=== PATIENT | female | born 1945 | race Caucasian/White ===

== ENCOUNTER → 2017-10-20 13:56 | Outpatient (CLI) | payer OTHER, SELFPAY | PROVIDERS: Family Provider Family Medicine; PCP Family Medicine; Visit Provider Physician Assistant | DX: N39.0 Urinary tract infection, site not specified (principal); R31.9 Hematuria, unspecified | CPT/HCPCS: 87086 ==

== ENCOUNTER 2018-09-11 06:10 | Emergency (ER) | payer OTHER, SELFPAY ==
[2018-09-11 06:17] VITALS: BP 159/94; PULSE 82; RESP 20; TEMP 36.5; O2SAT 98; BMI 28.8
--- NOTE | 2018-09-11 06:26 | DI.RAD.S_ITS ---
PROCEDURE: XR WRIST LT MIN 3V INDICATIONS: fall with pain, swelling, history of fractures TECHNIQUE: 3 views of the wrist were acquired. COMPARISON: [facility], CT, UPPER EXTREMITY WO CONTRAST, 08/17/2017, 13:09. [facility], CR, WRIST MINIMUM 3 VIEWS LEFT, 06/09/2017, 11:33. FINDINGS: Bones: There is a mildly displaced distal radius fracture, with intra-articular involvement. This fracture is new compared to the prior study. Findings of a remote fracture of the distal radius can be seen, prior plate and screw fixation. There is an unfused ulnar styloid fracture seen. Degenerative changes are seen, which are most prominent involving radial aspect of the carpus. The scapholunate interval is again noted to be widened. Soft tissues: Mild soft tissue swelling is seen. IMPRESSION: There is an acute, mildly displaced, intra-articular fracture of the distal radius. Remote fractures with postoperative change of the distal radius can be seen. Remote, unfused ulnar styloid fracture. Likely scapholunate ligament tear. Note: No significant discrepancy from the preliminary report. Dictated by: Adam Gonzalez M.D. on 09/11/2018 at 7:01 Approved by: Adam Gonzalez M.D. on 09/11/2018 at 7:04
--- NOTE | 2018-09-11 06:49 | ED.UPPEXIN ---
HPI - Extremity Injury (Upper) General Chief Complaint: Extremity Injury, Upper Stated Complaint: thinks left wrist is broken Time Seen by Provider: 09/11/18 06:15 Source: patient Mode of arrival: ambulatory Limitations: no limitations History of Present Illness HPI narrative: 73F former smoker presents with L wrist pain after fall with history of prior fracture requiring surgery. She was walking on her deck and stubbed her toe and fell on an outstretched wrist. She denies head, neck, or back pain. Her pain is worse with motion. She denies numbness, tingling or other. MD complaint: injury to: left Onset (ago): minute(s) Other injuries: none Handedness: right Place: home Severity: moderate Relieving factors: immobilization and rest Exacerbating factors: movement of extremity Context: fall Associated symptoms: denies other symptoms Related Data Allergies Allergy/AdvReac Type Severity Reaction Status Date / Time No Known Drug Allergies Allergy Verified 10/20/17 13:18 Review of Systems Constitutional Denies chills, Denies fever(s), Denies lethargy and Denies weakness Eyes Denies change in vision, Denies eye discharge, Denies irritation and Denies loss of vision ENT Ears, Nose, Mouth, and Throat: Denies change in voice, Denies neck pain and Denies sore throat Cardiovascular Denies chest pain, Denies irregular heart rhythm, Denies lightheadedness, Denies palpitations, Denies dyspnea, Denies dyspnea on exertion and Denies orthopnea Respiratory Denies cough, Denies dyspnea, Denies dyspnea on exertion and Denies wheezing Gastrointestinal Gastrointestinal: Denies abdominal pain, Denies change in bowel habits, Denies diarrhea, Denies nausea and Denies vomiting Genitourinary Denies hematuria, Denies flank pain, Denies urinary incontinence and Denies urinary urgency Musculoskeletal Reports joint swelling, Reports limited range of motion and Denies neck pain Integumentary/Breasts Denies pruritus, Denies erythema, Denies rash and Denies wounds Neurologic Denies confusion, Denies loss of vision and Denies weakness Psychiatric Denies anxiety, Denies confusion, Denies depression, Denies homicidal ideation and Denies suicidal ideation Endocrine Denies palpitations Hematologic/Lymphatic Denies easy bruising Allergic/Immunologic Denies wheezing [facility] Social History Smoking Status: Former smoker alcohol intake: never Social History (Reviewed 09/11/18 @ 07:04 by CLAUDIA Armenta Smoking Status: Former smoker alcohol intake: never Exam Narrative Exam Narrative: GENERAL: 73F appears stated age, clearly in pain, splinting her L wrist HEAD: Atraumatic. Normocephalic. No temporal or scalp tenderness. EYES: Pupils equal round and reactive. Extraocular motions intact. No scleral icterus. No injection or drainage. ENT: Nose without bleeding, purulent drainage or septal hematoma. Throat without erythema, tonsillar hypertrophy or exudate. Uvula midline. Airway patent. NECK: Trachea midline. No JVD or lymphadenopathy. Supple, nontender, no meningeal signs. CARDIOVASCULAR: Regular rate and rhythm without murmurs, gallops, or rubs. RESPIRATORY: Clear to auscultation. Breath sounds equal bilaterally. No wheezes, rales, or rhonchi. GASTROINTESTINAL: Abdomen soft, non-tender, nondistended. No hepato-splenomegaly, or palpable masses. No guarding. EXTREMITIES: Decreased ROM secondary to pain. Closed, isolated and NV in tact. BACK: Nontender without deformity or crepitance. No flank tenderness. NEURO: AOx3. SKIN: No rash or erythema. Initial Vital Signs Initial Vital Signs: Vital Signs Temperature 97.7 F 09/11/18 06:17 Pulse Rate 82 09/11/18 06:17 Respiratory Rate 20 09/11/18 06:17 Blood Pressure 159/94 H 09/11/18 06:17 Pulse Oximetry 98 09/11/18 06:17 Procedures Orthopedic Splinting/Casting Injury #1: Side: left Upper Extremity Injury Location: wrist Upper Extremity Immobilizer: sling/shoulder immobilizer and sugar tong splint Post splinting neuro exam: intact Post splinting vascular exam: intact Placed by: Nursing Course Orders Ordered: ED Orders 09/11/18 06:26 XR wrist LT min 3V Stat Discontinued Medications Hydrocodone Bitart/Acetaminophen (Vicodin Prepack) 1 bottle MISC SEEINSTR ONE Stop: 09/11/18 06:56 Consultations Consultation #1: consult with Dr. Lagunas, he is in agreement with plan to splint and follow up Vital Signs - 8 hr 09/11/18 06:17 Temperature 97.7 F Pulse Rate 82 Respiratory Rate 20 Blood Pressure 159/94 H Pulse Oximetry 98 MDM - Extremity Injury (Upper) Imaging Data Wrist Xray: My impression: Minimally displaced distal radius fracture Discharge Plan Departure Patient Disposition: Home Clinical Impression: Fracture of left distal radius Qualifiers: Encounter type: initial encounter Fracture type: closed Fracture morphology: unspecified fracture morphology Qualified Code(s): S52.502A - Unspecified fracture of the lower end of left radius, initial encounter for closed fracture Instructions: DI for Distal Radius Fracture Activity Restrictions/Additional Instructions: *You have been diagnosed with [ minimally displaced Left distal radius fracture] *What to do: *Take medications as directed *Follow up with your orthopedist in 2-3 days, call for an appointment. Let them know you were seen in the Emergency Department and that we ask that you be seen in follow up *Return to ER if you should have any new, worsening or concerning symptoms, such as [ worsening pain, numbness, tingling, or other bothersome symptoms] Referrals: Santiago Lagunas MD [Physician] -
[2018-09-11] MEDS: HYDROCODONE/ACET 5/325 PREPACK 1 BOTTLE MISC (07:04)
== END 2018-09-11 07:35 | disposition home or self-care (01) ==
PROVIDERS: Emergency Provider Emergency Medicine
DX: S52.502A Unspecified fracture of the lower end of left radius, initial encounter for closed fracture (principal); W19.XXXA Unspecified fall, initial encounter
CPT/HCPCS: 29125; 73110; 99283

== ENCOUNTER → 2020-01-16 11:37 | Outpatient (CLI) | payer OTHER, SELFPAY ==
[2020-01-18 10:02] LABS: COVID19 Sendout Not Detected (Not Detect)
== END ==
PROVIDERS: Visit Provider Physician Assistant
DX: Z11.59 Encounter for screening for other viral diseases (principal); R52 Pain, unspecified; R53.83 Other fatigue
CPT/HCPCS: 87635

== ENCOUNTER → 2020-01-16 12:12 | Outpatient (CLI) | payer OTHER, SELFPAY ==
[2020-01-16 12:25] LABS: Bacteria Urine None Seen; WBC Urine None Seen (0-5/HPF)
[2020-01-16 12:46] LABS: Appearance Urine UA CLEAR; Bilirubin Urine UA NEGATIVE (NEGATIVE); Color Urine UA YELLOW; Glucose Urine UA NEGATIVE (Negative); Ketones Urine UA NEGATIVE (NEGATIVE); Leukocyte Esterase Urine UA NEGATIVE (NEGATIVE); Nitrite Urine UA NEGATIVE (Negative); Occult Blood Urine UA 2+ (Negative); Protein Urine UA NEGATIVE (Negative); Specific Gravity Urine UA 1.025 (1.000-1.035); Urobilinogen Urine UA 0.2 E.U./dL (0.2)
[2020-01-16 12:53] LABS: Add Manual Diff / Slide Review NO; Basophils Absolute Auto 0 /uL (0-100); Basophils Percent Auto 0.5 % (0-2); Eosinophils Absolute Auto 100 /uL (0-450); Eosinophils Percent Auto 1.5 % (2-4); Hematocrit 45.4 % (36-46); Hemoglobin 15.4 g/dL (12.0-16.0); Lymphocytes Absolute Auto 2400 /uL (1100-4500); Lymphocytes Percent Auto 26.6 % (25-40); Mean Corpuscular HGB Conc 33.8 % (30-36); Mean Corpuscular Hemoglobin 30.3 PG (26-34); Mean Corpuscular Volume 89.6 fL (80-100); Monocytes Absolute Auto 900 /uL (0-900); Monocytes Percent Auto 9.7 % (3-14); Neutrophils Absolute Auto 5500 /uL (1500-7000); Neutrophils Percent Auto 61.7 % (50-75); Platelet Count 250 X10^3/uL (150-400); Red Blood Cell Count 5.07 X10^6/uL (4.0-5.2); Red Cell Distribution Width 13.2 % (11.6-14.8); White Blood Cell Count 8.9 X10^3/uL (4.5-11.0)
[2020-01-16 12:55] LABS: Culture Indicated Urine Cult Not Indicated; RBC Urine 5-10/HPF (0-5/HPF); Squamous Epithelial Cell Urine 5-10 /HPF (0-5/HPF)
[2020-01-16 13:38] LABS: Alanine Aminotransferase 27 IU/L (<35); Albumin 4.3 g/dL (3.5-5.0); Albumin Globulin Ratio 1.4 (1.0-2.8); Alkaline Phosphatase 77 U/L (38-126); Amylase 104 U/L (30-110); Aspartate Aminotransferase 27 IU/L (14-36); BUN Creatinine Ratio 23.5 (6-22); Bilirubin Total 0.4 mg/dL (0.2-1.3); Blood Urea Nitrogen 16 mg/dL (7-17); Calcium 9.5 mg/dL (8.4-10.2); Carbon Dioxide 31 mmol/L (22-32); Chloride 104 mmol/L (98-107); Estimated Glomerular Filt Rate > 60.0 mL/min (>60); Globulin 3.1 g/dL (1.7-4.1); Glucose 93 mg/dL (80-110); HEMOLYSIS < 15 (0-50); Lipase 95 U/L (23-300); Potassium 4.3 mmol/L (3.4-5.1); Sodium 140 mmol/L (137-145); Total Protein 7.4 g/dL (6.3-8.2)
[2020-01-16 14:08] LABS: TSH w/ Reflex to FT4 1.47 uIU/mL (0.47-4.68)
== END ==
PROVIDERS: PCP Family Medicine; Referring Provider Physician Assistant; Visit Provider Physician Assistant
DX: Z03.818 Encounter for observation for suspected exposure to other biological agents ruled out (principal); R53.83 Other fatigue; R52 Pain, unspecified
CPT/HCPCS: 36415; 80053; 81001; 82150; 83690; 84443; 85025; 87635

== ENCOUNTER 2020-06-05 10:28 | Emergency (ER) | payer OTHER, SELFPAY ==
[2020-06-05] VITALS (7 sets, daily range): BP systolic 138–178; BP diastolic 68–83; PULSE 71–85; RESP 16; TEMP 36.7; O2SAT 96–97
--- NOTE | 2020-06-05 11:01 | DI.RAD.S_ITS ---
PROCEDURE: XR SHOULDER LT MIN 2V INDICATIONS: pain x month, no trauma TECHNIQUE: 3 views of the shoulder were acquired. COMPARISON: [facility], CR, SHOULDER MINIMUM 2 VIEW LEFT, 02/02/2015, 14:47. [facility], CR, XR SHOULDER MIN 2VW LT, 01/24/2016, 15:48. FINDINGS: Bones: No fractures or dislocations. No suspicious bony lesions. There is moderate glenohumeral joint and acromioclavicular joint degeneration. Visualized ribs appear intact. Soft tissues: Calcification over the humeral head, suspicious for rotator cuff calcific tendinitis. IMPRESSION: 1. Moderate degenerative joint disease. 2. Suspect rotator cuff calcific tendinitis. Dictated by: Odessa Harris M.D. on 06/05/2020 at 11:47 Approved by: Odessa Harris M.D. on 06/05/2020 at 11:51
--- NOTE | 2020-06-05 11:01 | DI.RAD.S_ITS ---
PROCEDURE: XR CHEST 2V INDICATIONS: pain x month, no trauma TECHNIQUE: 2 views of the chest were acquired. COMPARISON: [facility], , CHEST 1 VIEW, 07/08/2017, 11:46. FINDINGS: Surgical changes and devices: None. Lungs and pleura: Mild chronic interstitial prominence. Lungs are clear. No pleural effusions or pneumothorax. Mediastinum: Mediastinal contours are normal. Heart size is normal. Bones and chest wall: No suspicious bony abnormalities. Soft tissues appear unremarkable. IMPRESSION: No acute cardiopulmonary disease. Dictated by: Odessa Harris M.D. on 06/05/2020 at 11:25 Approved by: Odessa Harris M.D. on 06/05/2020 at 11:36
[2020-06-05 11:24] LABS: Prothrombin Time 11.8 SECONDS (10.1-12.7)
[2020-06-05 11:26] LABS: HEMOLYSIS < 15 (0-50)
[2020-06-05 11:27] LABS: PTT Partial Thromboplastin Tim 37 SECONDS (26.4-36.2)
[2020-06-05 11:33] LABS: Alanine Aminotransferase 24 IU/L (<35); Albumin 4.3 g/dL (3.5-5.0); Albumin Globulin Ratio 1.4 (1.0-2.8); Alkaline Phosphatase 91 U/L (38-126); Aspartate Aminotransferase 25 IU/L (14-36); BUN Creatinine Ratio 24.1 (6-22); Bilirubin Total 0.5 mg/dL (0.2-1.3); Blood Urea Nitrogen 14 mg/dL (7-17); Calcium 9.3 mg/dL (8.4-10.2); Carbon Dioxide 30 mmol/L (22-32); Chloride 104 mmol/L (98-107); Creatine Kinase 48 U/L (30-135); Estimated Glomerular Filt Rate > 60.0 mL/min (>60); Globulin 3.1 g/dL (1.7-4.1); Glucose 128 mg/dL (80-110); Lipase 58 U/L (23-300); Potassium 3.9 mmol/L (3.4-5.1); Sodium 138 mmol/L (137-145); Total Protein 7.4 g/dL (6.3-8.2)
[2020-06-05 11:44] LABS: Add Manual Diff / Slide Review NO; Basophils Absolute Auto 0 /uL (0-100); Basophils Percent Auto 0.6 % (0-2); Eosinophils Absolute Auto 100 /uL (0-450); Eosinophils Percent Auto 1.4 % (2-4); Hematocrit 46.1 % (36-46); Hemoglobin 15.2 g/dL (12.0-16.0); Lymphocytes Absolute Auto 2300 /uL (1100-4500); Lymphocytes Percent Auto 32.7 % (25-40); Mean Corpuscular HGB Conc 33.1 % (30-36); Mean Corpuscular Hemoglobin 29.3 PG (26-34); Mean Corpuscular Volume 88.7 fL (80-100); Monocytes Absolute Auto 600 /uL (0-900); Monocytes Percent Auto 8.9 % (3-14); Neutrophils Absolute Auto 4000 /uL (1500-7000); Neutrophils Percent Auto 56.4 % (50-75); Platelet Count 260 X10^3/uL (150-400); Red Blood Cell Count 5.19 X10^6/uL (4.0-5.2); Red Cell Distribution Width 13.7 % (11.6-14.8); White Blood Cell Count 7.1 X10^3/uL (4.5-11.0)
[2020-06-05 11:47] LABS: NT-proBNP (BNP-Adult 18+) 62 pg/mL (<125); Troponin I < 0.012 ng/mL (0.01-0.034)
--- NOTE | 2020-06-05 11:53 | DI.CT.S_ITS ---
PROCEDURE: CT HEAD/BRAIN WO CON INDICATIONS: dizziness TECHNIQUE: Noncontrast 4.5 mm thick angled axial sections acquired from the foramen magnum to the vertex, with coronal and sagittal reformats. For radiation dose reduction, the following was used: automated exposure control, adjustment of mA and/or kV according to patient size. COMPARISON: None. FINDINGS: Image quality: Diagnostic CSF spaces: Basal cisterns are patent. No extra-axial fluid collections. The ventricles are symmetric in size and shape. Brain: No intracranial bleeds or masses. There is cerebral volume loss for age, with resultant ventricular and sulcal prominence. There are periventricular and deep white matter chronic small vessel ischemic changes. There is intracranial internal carotid artery atherosclerosis. Skull and face: Calvarium and visualized facial bones appear intact, without suspicious lesions. Sinuses: Visualized sinuses and mastoids are clear. A IMPRESSION: Unremarkable intracranial study for age. Stable from prior. Dictated by: Adam Gonzalez M.D. on 06/05/2020 at 11:19 Approved by: Adam Gonzalez M.D. on 06/05/2020 at 11:20
[2020-06-05 12:09] LABS: Bacteria Urine Moderate (10-30); Culture Indicated Urine Cult Not Indicated; Mucus Urine 1+ (Negative); RBC Urine 5-10/HPF (0-5/HPF); Squamous Epithelial Cell Urine 1-5 /HPF (0-5/HPF); WBC Urine 1-5/HPF (0-5/HPF)
[2020-06-05 12:46] LABS: TSH w/ Reflex to FT4 1.44 uIU/mL (0.47-4.68)
[2020-06-05] MEDS: KETOROLAC 60 MG/2 ML VIAL 15 MG IV (14:48)
[2020-06-05 15:06] LABS: Troponin I < 0.012 ng/mL (0.01-0.034)
--- NOTE | 2020-06-05 19:42 | ED.EXTPRO ---
HPI - Extremity Problem <SANDY uLi - Last Filed: 06/05/20 20:06> General Chief complaint: Dizziness Stated complaint: high blood pressure/left arm/should pain w/ moveme Time Seen by Provider: 06/05/20 11:32 Source: patient Mode of arrival: Ambulatory Limitations: no limitations History of Present Illness HPI Narrative: This is a 74 year female, former smoker, who has past medical history significant for arthritis, fibromyalgia, COPD, hyperlipidemia, hypertension presents to ED with chief complain of multiple chief complaints. Patient states noticed intermittently elevated blood pressure at home in SBP upto mid 140's. Patient reports left upper arm pain from shoulder to mid upper arm which worsens with movement in associations of stop taking Cymbalta. Patient initially prescribed with low dose of Cymbalta about 3 months ago and which was increased in dose to twice slowly for joint pain management. When Cymbalta was increased in dosed up to 60 mg, patient had negative thoughts, insomnia, racing heart beats and she stopped abruptly about 3 weeks ago. Patient also reports low back pain and wonders if she has kidney problems. She is known to have microscopic hematuria in the past. Patient also states she had left arm pain after the flu immunization awhile ago then developed bilateral neck pain. Patient also says reports she has intermittent right groin pain feels worse when she is trying to sleep at night when lying on affected site. Patient also reports some dizziness, palpitation and nausea last 2-3 days. Patient denies cough, fever, chills, vomiting, abdominal pain. Denies other urinary symptoms. She denies dyspnea more than her usual COPD symptoms. Related Data Previous Rx's Medication Instructions Recorded lidocaine 1 patch TOPICAL DAILY PRN #30 ea 06/05/20 amlodipine 2.5 mg-benazepril 10 mg 1 cap PO DAILY #30 cap 06/06/20 capsule Allergies Allergy/AdvReac Type Severity Reaction Status Date / Time No Known Drug Allergies Allergy Verified 06/06/20 09:17 Review of Systems <SANDY Lui - Last Filed: 06/05/20 20:06> Review of Systems Narrative: General: Denies fever, chills, fatigue, malaise, sweats. HEENT: Denies sinus pain, ear pain, sore throat, difficulty swallowing,(+) dizziness. Respiratory: Denies dyspnea, cough, wheezing, hemoptysis, sputum. Cardiovascular: See HPI Gastrointestinal: Denies (+) nausea, vomiting, abdominal pain, diarrhea, constipation, melena. : Denies dysuria, frequency, incontinence, hematuria, urinary retention. Musculoskeletal: See HPI Skin: Denies rash, skin lesions, or other. Neurologic: Denies weakness, headache, numbness, change in speech, confusion, seizures, incoordination. Psychiatric: No concerning psychosocial issues. 12-point review of systems is negative except for those stated above. Patient History <SANDY Lui - Last Filed: 06/05/20 20:06> Medical History Acute exacerbation of chronic obstructive pulmonary disease (COPD) (~2018) Chicken pox COPD (chronic obstructive pulmonary disease) Dry eyes (~2018) Dyslipidemia Fatigue Fibromyalgia (~2014) Hearing loss History of urinary incontinence (~2018) Measles Microscopic hematuria Osteoarthritis Osteoporosis (~2013) Vision disorder Surgical History Anesthesia H/O wrist surgery History of section History of removal of cyst History of tonsillectomy Family History Father Lung disease Mother Diabetes mellitus History of heart disease Hypertension Lung disease Social History Smoking Status: Former smoker alcohol intake: never Smoking Status: Former smoker alcohol intake frequency: holidays/special occasions only Substance Use Type: does not use Exam <SANDY Lui - Last Filed: 06/05/20 20:06> Narrative Exam Narrative: GEN: Alert, oriented x 3, well appearing and nourished, and in no acute distress. Head: Normal cephalic, atraumatic. No scalp or temporal tenderness, palpable mass or rash. EYES: Pupils are equal, round, and reactive to light and accommodation. Extraocular muscles are intact bilaterally. There is no subconjunctival hemorrhage, exudate and sclera non-icteric. ENT: Hearing grossly intact. Mucous membrane moist, no mucosal lesion. Throat without erythema, tonsillar hypertrophy or exudate. Uvula in midline, airway patent. Neck: Trachea in midline. No JVD, non-tender without lymphadenopathy. No masses or thyroid megaly. Supple, non-tender and no meningeal signs. CARDIAC: Normal regular rate and rhythm without murmurs, gallops, or rubs. No chest wall tenderness. No peripheral edema, cyanosis or pallor. Capillary refill is less than 2 seconds. RESPIRATORY: Lungs are clear to auscultate bilaterally. No cough, wheezes, rales, or rhonchi. No stridor, respiratory distress, increase work of breathing, or accessary muscle used. ABD: Abdomen soft, nontender and non-distended. No guarding or rebound tenderness to palpate. Bowel sounds are normal in all 4 quadrants. There is no palpable masses or organomegaly. SKIN: Warm, dry, normal color for patient. No erythema, lesions or rash over visible areas. BACK: Nontender to palpate in low back without deformity or crepitance. No flank tenderness. NEUROLOGICAL: Alert and oriented to place, time and person. Sensation and motor function intact bilaterally. No facial droops, dysphasia. PSYCHIATRIC: Good judgement and reason, without hallucinations, abnormal affect or abnormal behaviors during the examination. Patient is not suicidal. Initial Vital Signs Initial Vital Signs: Vital Signs Temperature 98.1 F 06/05/20 10:55 Pulse Rate 85 06/05/20 10:55 Respiratory Rate 16 06/05/20 10:55 Blood Pressure 178/83 H 06/05/20 10:55 Pulse Oximetry 96 06/05/20 10:55 Extrem Left upper extremity: normal to inspection, normal capillary refill, shoulder/upper arm Details: inspection abnormal and normal ROM; no swelling, no deformity and no unsual warmth, wrist Details: normal to inspection, normal ROM, normal vascular exam and radial pulse present and hand Details: neuromotor exam normal and neurosensory exam normal; no edema and joint enlargement noted <Berna Chisholm, - Last Filed: 06/06/20 10:49> Initial Vital Signs Initial Vital Signs: Vital Signs Temperature 98.1 F 06/05/20 10:55 Pulse Rate 85 06/05/20 10:55 Respiratory Rate 16 06/05/20 10:55 Blood Pressure 178/83 H 06/05/20 10:55 Pulse Oximetry 96 06/05/20 10:55 Scores <Alexander BurgerKyaraLESLIE shearerP - Last Filed: 06/05/20 20:06> GCS Elizabeth coma scale eye opening: Spontaneous Elizabeth coma scale verbal response: Orientated Elizabeth coma scale motor response: Obey commands Elizabeth coma scale total score: 15 HEART Score Heart Score history: Slightly Suspicious Heart Score EKG: Non-Specific repolarization disturbance Heart Score Age: > or = 65 years old Heart Score risk factors: No known risk factors Heart Score troponin: < or = to normal limit Heart Score Total: 3 Course <Alexander BurgerKyaraLESLIE shearerP - Last Filed: 06/05/20 20:06> Orders Ordered: Discontinued Medications Ketorolac Tromethamine (Ketorolac 60 Mg/2 Ml Vial) 15 mg IV NOW ONE Stop: 06/05/20 14:39 Last Admin: 06/05/20 14:48 Dose: 15 mg Documented by: JOSE Vital Signs Vital signs: Vital Signs - 8 hr 06/05/20 13:38 06/05/20 13:40 06/05/20 14:00 Pulse Rate 75 71 77 Blood Pressure 138/73 138/73 149/68 H Pulse Oximetry 97 97 97 06/05/20 14:30 06/05/20 15:10 06/05/20 15:11 Pulse Rate 72 77 Blood Pressure 148/76 H Pulse Oximetry 97 96 96 <Berna Chisholm DO - Last Filed: 06/06/20 10:49> Orders Ordered: Discontinued Medications Ketorolac Tromethamine (Ketorolac 60 Mg/2 Ml Vial) 15 mg IV NOW ONE Stop: 06/05/20 14:39 Last Admin: 06/05/20 14:48 Dose: 15 mg Documented by: ALEXIMEN Vital Signs Vital signs: Vital Signs - 8 hr 06/05/20 13:38 06/05/20 13:40 06/05/20 14:00 Pulse Rate 75 71 77 Blood Pressure 138/73 138/73 149/68 H Pulse Oximetry 97 97 97 06/05/20 14:30 06/05/20 15:10 06/05/20 15:11 Pulse Rate 72 77 Blood Pressure 148/76 H Pulse Oximetry 97 96 96 MDM - Extremity (Nontraumatic) <Alexander BurgerLESLIE HaileP - Last Filed: 06/05/20 20:06> Differential Diagnosis Differential diagnosis: Likely other (atypical chest pain, ACS, shoulder strain, osteoarthritis, fibromyalgia) Medical Records Attestation: I reviewed the patient's medical records. Lab Data Attestation: I reviewed the patient's lab results. Result diagrams: 06/05/20 11:07 06/05/20 11:07 Labs: Lab Results 06/05/20 06/05/20 06/05/20 Range/Units 11:07 11:07 11:07 WBC 7.1 (4.5-11.0) X10^3/uL RBC 5.19 (4.0-5.2) X10^6/uL Hgb 15.2 (12.0-16.0) g/dL Hct 46.1 H (36-46) % MCV 88.7 (80-100) fL MCH 29.3 (26-34) PG MCHC 33.1 (30-36) % RDW 13.7 (11.6-14.8) % Plt Count 260 (150-400) X10^3/uL Neut % (Auto) 56.4 (50-75) % Lymph % (Auto) 32.7 (25-40) % [place] % (Auto) 8.9 (3-14) % Eos % (Auto) 1.4 L (2-4) % Baso % (Auto) 0.6 (0-2) % Neut # (Auto) 4000 (9295-0788) /uL Lymph # (Auto) 2300 (9795-7840) /uL [place] # (Auto) 600 (0-900) /uL Eos # (Auto) 100 (0-450) /uL Baso # (Auto) 0 (0-100) /uL PT 11.8 (10.1-12.7) SECONDS INR 1.0 (0.9-1.3) APTT 37 H (26.4-36.2) SECONDS Sodium 138 (137-145) mmol/L Potassium 3.9 (3.4-5.1) mmol/L Chloride 104 (98-107) mmol/L Carbon Dioxide 30 (22-32) mmol/L BUN 14 (7-17) mg/dL Creatinine 0.58 (0.52-1.04) mg/dL Estimated GFR > 60.0 (>60) mL/min BUN/Creatinine Ratio 24.1 H (6-22) Glucose 128 H (80-110) mg/dL Calcium 9.3 (8.4-10.2) mg/dL Magnesium 2.0 (1.6-2.3) mg/dL Total Bilirubin 0.5 (0.2-1.3) mg/dL AST 25 (14-36) IU/L ALT 24 (<35) IU/L Alkaline Phosphatase 91 (38-126) U/L Total Creatine Kinase 48 (30-135) U/L CK-MB (CK-2) TNP CK-MB (CK-2) Rel Index TNP Troponin I < 0.012 (0.01-0.034) ng/mL NT-Pro-B Natriuret Pep 62 (<125) pg/mL Total Protein 7.4 (6.3-8.2) g/dL Albumin 4.3 (3.5-5.0) g/dL Globulin 3.1 (1.7-4.1) g/dL Albumin/Globulin Ratio 1.4 (1.0-2.8) Lipase 58 (23-300) U/L TSH (0.47-4.68) uIU/mL Urine RBC (0-5/HPF) Urine WBC (0-5/HPF) Ur Squamous Epith Cells (0-5/HPF) Urine Bacteria (None) Urine Mucus (Negative) Ur Culture Indicated? 06/05/20 06/05/20 06/05/20 Range/Units 11:07 11:30 14:36 WBC (4.5-11.0) X10^3/uL RBC (4.0-5.2) X10^6/uL Hgb (12.0-16.0) g/dL Hct (36-46) % MCV (80-100) fL MCH (26-34) PG MCHC (30-36) % RDW (11.6-14.8) % Plt Count (150-400) X10^3/uL Neut % (Auto) (50-75) % Lymph % (Auto) (25-40) % [place] % (Auto) (3-14) % Eos % (Auto) (2-4) % Baso % (Auto) (0-2) % Neut # (Auto) (3270-5648) /uL Lymph # (Auto) (7474-9243) /uL [place] # (Auto) (0-900) /uL Eos # (Auto) (0-450) /uL Baso # (Auto) (0-100) /uL PT (10.1-12.7) SECONDS INR (0.9-1.3) APTT (26.4-36.2) SECONDS Sodium (137-145) mmol/L Potassium (3.4-5.1) mmol/L Chloride (98-107) mmol/L Carbon Dioxide (22-32) mmol/L BUN (7-17) mg/dL Creatinine (0.52-1.04) mg/dL Estimated GFR (>60) mL/min BUN/Creatinine Ratio (6-22) Glucose (80-110) mg/dL Calcium (8.4-10.2) mg/dL Magnesium (1.6-2.3) mg/dL Total Bilirubin (0.2-1.3) mg/dL AST (14-36) IU/L ALT (<35) IU/L Alkaline Phosphatase (38-126) U/L Total Creatine Kinase (30-135) U/L CK-MB (CK-2) CK-MB (CK-2) Rel Index Troponin I < 0.012 (0.01-0.034) ng/mL NT-Pro-B Natriuret Pep (<125) pg/mL Total Protein (6.3-8.2) g/dL Albumin (3.5-5.0) g/dL Globulin (1.7-4.1) g/dL Albumin/Globulin Ratio (1.0-2.8) Lipase (23-300) U/L TSH 1.44 (0.47-4.68) uIU/mL Urine RBC 5-10/hpf H (0-5/HPF) Urine WBC 1-5/hpf (0-5/HPF) Ur Squamous Epith Cells 1-5 /hpf (0-5/HPF) Urine Bacteria Moderate (10-30) H (None) Urine Mucus 1+ H (Negative) Ur Culture Indicated? Cult not indicated Urine Dip Bedside Urine Glucose Negative Bedside Urine Bilirubin - Negative Bedside Urine Ketone - Negative Urine Specific [place] 1.030 Bedside Urine Occult Blood +/- Bedside Urine pH 6.0 Bedside Urine Protein - Negative Bedside Urine Urobilinogen - Negative Bedside Urine Nitrite - Negative Bedside Urine Leukocytes - Negative Esterase Imaging Data Chest x-ray: Radiologist's Impression: [address] [id number] ReportSigned Patient: Sapphire Castaneda AMR#: [id number]: 8Acct:[id number]/Sex: 74 / FDate of Service: 06/05/20Loc: EDAccession Number: [id number] Procedure: XR chest 2V Ordering Provider: Berna Chisholm D.O. PROCEDURE: XR CHEST 2V INDICATIONS: pain x month, no trauma TECHNIQUE: 2 views of the chest were acquired. COMPARISON: [facility], , CHEST 1 VIEW, 07/08/2017, 11:46. FINDINGS: Surgical changes and devices: None. Lungs and pleura: Mild chronic interstitial prominence. Lungs are clear. No pleural effusions or pneumothorax. Mediastinum: Mediastinal contours are normal. Heart size is normal. Bones and chest wall: No suspicious bony abnormalities. Soft tissues appear unremarkable. IMPRESSION: No acute cardiopulmonary disease. Dictated by: Odessa Harris M.D. on 06/05/2020 at 11:25 Approved by: Odessa Harris M.D. on 06/05/2020 at 11:36 XR-Shoulder LT: Radiologist's Impression: [address] [id number] ReportSigned Patient: Sapphire Castaneda AMR#: [id number]: 8Acct:[id number]/Sex: 74 / FDate of Service: 06/05/20Loc: EDAccession Number: [id number] Procedure: XR shoulder LT min 2V Ordering Provider: Berna Chisholm D.O. PROCEDURE: XR SHOULDER LT MIN 2V INDICATIONS: pain x month, no trauma TECHNIQUE: 3 views of the shoulder were acquired. COMPARISON: [facility], , SHOULDER MINIMUM 2 VIEW LEFT, 02/02/2015, 14:47. [facility], XR SHOULDER MIN 2VW LT, 01/24/2016, 15:48. FINDINGS: Bones: No fractures or dislocations. No suspicious bony lesions. There is moderate glenohumeral joint and acromioclavicular joint degeneration. Visualized ribs appear intact. Soft tissues: Calcification over the humeral head, suspicious for rotator cuff calcific tendinitis. IMPRESSION: 1. Moderate degenerative joint disease. 2. Suspect rotator cuff calcific tendinitis. Dictated by: Odessa Harris M.D. on 06/05/2020 at 11:47 Approved by: Odessa Harris M.D. on 06/05/2020 at 11:51 CT scan - head: Radiologist's Impression: [address] [id number] Scan ReportSigned Patient: Sapphire Castaneda AMR#: [id number]: 8Acct:[id number]/Sex: 74 / FDate of Service: 06/05/20Loc: EDAccession Number: [id number] Procedure: CT head/brain wo con Ordering Provider: Berna Chisholm D.O. PROCEDURE: CT HEAD/BRAIN WO CON INDICATIONS: dizziness TECHNIQUE: Noncontrast 4.5 mm thick angled axial sections acquired from the foramen magnum to the vertex, with coronal and sagittal reformats. For radiation dose reduction, the following was used: automated exposure control, adjustment of mA and/or kV according to patient size. COMPARISON: None. FINDINGS: Image quality: Diagnostic CSF spaces: Basal cisterns are patent. No extra-axial fluid collections. The ventricles are symmetric in size and shape. Brain: No intracranial bleeds or masses. There is cerebral volume loss for age, with resultant ventricular and sulcal prominence. There are periventricular and deep white matter chronic small vessel ischemic changes. There is intracranial internal carotid artery atherosclerosis. Skull and face: Calvarium and visualized facial bones appear intact, without suspicious lesions. Sinuses: Visualized sinuses and mastoids are clear. A IMPRESSION: Unremarkable intracranial study for age. Stable from prior. Dictated by: Adam Gonzalez M.D. on 06/05/2020 at 11:19 Approved by: Adam Gonzalez M.D. on 06/05/2020 at 11:20 ECG Data Attestation EKG: I personally reviewed and interpreted this ECG as follows: Prior ECG tracings: available for review Interpretation: Normal sinus rhythm rate at 76. Normal axis. CA interval 168, QRS duration 84, QT/QTc 398/450 Nonspecific T-wave abnormality w/o significant changes from previous ECG tracings MDM Narrative Medical decision making narrative: This is a 74 year female who presents to ED with multiple chief complaints including left arm pain, low back pain, right groin pain, dizziness, nausea, palpitations last 2-3 days. Today patient received extensive workup for her multiple chief complaints. Patient has intact sensation and distal pulses intact. Patient has full range of motion on left arm. Patient is afebrile without significantly elevated BP. EKG shows sinus rhythm rate at [address] changes. Two sets of cardiac enzymes were negative. Chest x-ray without Acute findings. H&H is stable with 15.2/46.1. Unremarkable coag. Normal kidney function test. Normal liver function test With lipase. Otherwise unremarkable chemistry test except mildly elevated serum glucose of 128 with elevated BUN creatinine ratio above 24.1. Urine test does show urine RBC of 5-10/HPF, moderate bacteria but no significant urine WBC and she has no urinary symptoms. Head CT without acute findings. Shoulder x-ray shows moderate degenerative joint disease and suspect rotator cough calcific tendinitis. Patient treated with IV toward our 50 mg without marginal improvement. Patient provided with lidocaine patch. Advised to use [id number] Tylenol and or Motrin as needed for discomfort and possible physical therapy for conservative treatment options. Patient advised to follow-up with primary care physician and pains persist or worsen then to follow-up with orthopedist. Patient advised to monitor blood pressure at home around same time couple of times a day for next a week or 2 and to tract this. Patient advised to bring this information to primary care physician's appointment. Strict return precautions discussed with patient and she verbalized understanding and agreement with the treatment plan. <Berna Chisholm, DO - Last Filed: 06/06/20 10:49> Lab Data Labs: Lab Results 06/05/20 06/05/20 06/05/20 Range/Units 11:07 11:07 11:07 WBC 7.1 (4.5-11.0) X10^3/uL RBC 5.19 (4.0-5.2) X10^6/uL Hgb 15.2 (12.0-16.0) g/dL Hct 46.1 H (36-46) % MCV 88.7 (80-100) fL MCH 29.3 (26-34) PG MCHC 33.1 (30-36) % RDW 13.7 (11.6-14.8) % Plt Count 260 (150-400) X10^3/uL Neut % (Auto) 56.4 (50-75) % Lymph % (Auto) 32.7 (25-40) % [place] % (Auto) 8.9 (3-14) % Eos % (Auto) 1.4 L (2-4) % Baso % (Auto) 0.6 (0-2) % Neut # (Auto) 4000 (0447-0253) /uL Lymph # (Auto) 2300 (4907-2242) /uL [place] # (Auto) 600 (0-900) /uL Eos # (Auto) 100 (0-450) /uL Baso # (Auto) 0 (0-100) /uL PT 11.8 (10.1-12.7) SECONDS INR 1.0 (0.9-1.3) APTT 37 H (26.4-36.2) SECONDS Sodium 138 (137-145) mmol/L Potassium 3.9 (3.4-5.1) mmol/L Chloride 104 (98-107) mmol/L Carbon Dioxide 30 (22-32) mmol/L BUN 14 (7-17) mg/dL Creatinine 0.58 (0.52-1.04) mg/dL Estimated GFR > 60.0 (>60) mL/min BUN/Creatinine Ratio 24.1 H (6-22) Glucose 128 H (80-110) mg/dL Calcium 9.3 (8.4-10.2) mg/dL Magnesium 2.0 (1.6-2.3) mg/dL Total Bilirubin 0.5 (0.2-1.3) mg/dL AST 25 (14-36) IU/L ALT 24 (<35) IU/L Alkaline Phosphatase 91 (38-126) U/L Total Creatine Kinase 48 (30-135) U/L CK-MB (CK-2) TNP CK-MB (CK-2) Rel Index TNP Troponin I < 0.012 (0.01-0.034) ng/mL NT-Pro-B Natriuret Pep 62 (<125) pg/mL Total Protein 7.4 (6.3-8.2) g/dL Albumin 4.3 (3.5-5.0) g/dL Globulin 3.1 (1.7-4.1) g/dL Albumin/Globulin Ratio 1.4 (1.0-2.8) Lipase 58 (23-300) U/L TSH (0.47-4.68) uIU/mL Urine RBC (0-5/HPF) Urine WBC (0-5/HPF) Ur Squamous Epith Cells (0-5/HPF) Urine Bacteria (None) Urine Mucus (Negative) Ur Culture Indicated? 06/05/20 06/05/20 06/05/20 Range/Units 11:07 11:30 14:36 WBC (4.5-11.0) X10^3/uL RBC (4.0-5.2) X10^6/uL Hgb (12.0-16.0) g/dL Hct (36-46) % MCV (80-100) fL MCH (26-34) PG MCHC (30-36) % RDW (11.6-14.8) % Plt Count (150-400) X10^3/uL Neut % (Auto) (50-75) % Lymph % (Auto) (25-40) % [place] % (Auto) (3-14) % Eos % (Auto) (2-4) % Baso % (Auto) (0-2) % Neut # (Auto) (1030-0007) /uL Lymph # (Auto) (2870-3797) /uL [place] # (Auto) (0-900) /uL Eos # (Auto) (0-450) /uL Baso # (Auto) (0-100) /uL PT (10.1-12.7) SECONDS INR (0.9-1.3) APTT (26.4-36.2) SECONDS Sodium (137-145) mmol/L Potassium (3.4-5.1) mmol/L Chloride (98-107) mmol/L Carbon Dioxide (22-32) mmol/L BUN (7-17) mg/dL Creatinine (0.52-1.04) mg/dL Estimated GFR (>60) mL/min BUN/Creatinine Ratio (6-22) Glucose (80-110) mg/dL Calcium (8.4-10.2) mg/dL Magnesium (1.6-2.3) mg/dL Total Bilirubin (0.2-1.3) mg/dL AST (14-36) IU/L ALT (<35) IU/L Alkaline Phosphatase (38-126) U/L Total Creatine Kinase (30-135) U/L CK-MB (CK-2) CK-MB (CK-2) Rel Index Troponin I < 0.012 (0.01-0.034) ng/mL NT-Pro-B Natriuret Pep (<125) pg/mL Total Protein (6.3-8.2) g/dL Albumin (3.5-5.0) g/dL Globulin (1.7-4.1) g/dL Albumin/Globulin Ratio (1.0-2.8) Lipase (23-300) U/L TSH 1.44 (0.47-4.68) uIU/mL Urine RBC 5-10/hpf H (0-5/HPF) Urine WBC 1-5/hpf (0-5/HPF) Ur Squamous Epith Cells 1-5 /hpf (0-5/HPF) Urine Bacteria Moderate (10-30) H (None) Urine Mucus 1+ H (Negative) Ur Culture Indicated? Cult not indicated Urine Dip Bedside Urine Glucose Negative Bedside Urine Bilirubin - Negative Bedside Urine Ketone - Negative Urine Specific [place] 1.030 Bedside Urine Occult Blood +/- Bedside Urine pH 6.0 Bedside Urine Protein - Negative Bedside Urine Urobilinogen - Negative Bedside Urine Nitrite - Negative Bedside Urine Leukocytes - Negative Esterase Discharge Plan Departure Patient Disposition: Home Clinical Impression: Calcific shoulder tendinitis Qualifiers: Laterality: left Qualified Code(s): M75.32 - Calcific tendinitis of left shoulder Low back pain Qualifiers: Chronicity: unspecified Back pain laterality: bilateral Sciatica presence: without sciatica Qualified Code(s): M54.5 - Low back pain Groin strain Qualifiers: Encounter type: initial encounter Laterality: right Qualified Code(s): S76.211A - Strain of adductor muscle, fascia and tendon of right thigh, initial encounter Instructions: DI for Low Back Pain, DI for Groin Strain, DI for Calcific Tendonitis of the Shoulder Activity Restrictions/Additional Instructions: You have been diagnosed with [left shoulder calcific tendinitis, low back pain, groin strain. I recommend you tract your blood pressure around same time of the day couple of times a day for next 1-2 weeks. Please bring this information to your doctor for next appointment. Two sets of cardiac enzymes are negative. Lab test unremarkable. Head CT shows intracranial internal carotid artery arthrosclerosis but no acute findings such as bleeds or masses. Chest x-ray Was unremarkable. There was small amount of blood shown in urine but no indications for infection.]. What to do: *Take your medications as directed. Please use one of the NSAID such as Aleve or Motrin or ibuprofen. You can also take [id number] Tylenol 650 to 1000 mg up to 3 times a day as needed for pain. Use lidocaine patch on affected site for pain as needed. This medication has been transmitted to [facility] in [place]. *Follow up with your primary care provider in 2-3 days, call for an appointment. Let them know you were seen in the ED and that we asked you to be seen in follow up. You may require physical therapy for shoulder pain. If pain persists longer than expected without improvement then consider following up with orthopedist. *Return to ED if you have any new, worsening, or concerning symptoms, such as [worsening pain, chest pain, breathing difficulty, near syncope, fever, weakness/numbness/tingling on affected arm, fever or any acute concerns.]. Prescriptions: New lidocaine 5 % adhesive patch,medicated 1 patch topical DAILY PRN (Reason: pain) Qty: 30 RF: 0 No Action amlodipine-benazepril 2.5-10 mg capsule 1 cap PO DAILY Qty: 30 RF: 1 Referrals: [facility] [Provider Group] Shaka Joshi ARNP [Primary Care Provider] - <Berna Chisholm DO - Last Filed: 06/06/20 10:49> Cosign ED Attending Ginoature Attestation: I was immediately available in the department for consultation. Documentation has been reviewed.
== END 2020-06-05 15:53 | disposition home or self-care (01) ==
PROVIDERS: Emergency Medicine; Emergency Provider Nurse Practitioner Family; PCP Registered Nurse Diabetes Educator
DX: M75.32 Calcific tendinitis of left shoulder (principal); S76.211A Strain of adductor muscle, fascia and tendon of right thigh, initial encounter; M54.5 Low back pain; R79.89 Other specified abnormal findings of blood chemistry; R42 Dizziness and giddiness; R11.0 Nausea; M54.2 Cervicalgia; R10.9 Unspecified abdominal pain; R00.2 Palpitations
CPT/HCPCS: 36415; 70450; 71046; 73030; 80053; 81003; 81015; 82550; 83690; 83735; 83880; 84443; 84484; 85025; 85610; 85730; 93005; 93010; 96374; 99284; J1885

== ENCOUNTER → 2020-06-22 15:01 | Outpatient (CLI) | payer OTHER, SELFPAY ==
[2020-06-22 16:15] LABS: BUN Creatinine Ratio 25.5 (6-22); Blood Urea Nitrogen 14 mg/dL (7-17); Calcium 8.8 mg/dL (8.4-10.2); Carbon Dioxide 32 mmol/L (22-32); Chloride 102 mmol/L (98-107); Cholesterol 215 mg/dL (140-199); Estimated Glomerular Filt Rate > 60.0 mL/min (>60); Glucose 113 mg/dL (80-110); HDL Cholesterol 48 mg/dL (40-60); HEMOLYSIS < 15 (0-50); LDL Cholesterol Calculated 131 mg/dL (<100); Potassium 3.6 mmol/L (3.4-5.1); Sodium 139 mmol/L (137-145); Triglycerides 181 mg/dL (35-150)
[2020-06-22 17:50] LABS: Vitamin D 25 Hydroxy (D3) 25.7 ng/mL (30.0-100.0)
== END ==
PROVIDERS: PCP Registered Nurse Diabetes Educator; Referring Provider Registered Nurse Diabetes Educator; Visit Provider Registered Nurse Diabetes Educator
DX: E78.5 Hyperlipidemia, unspecified (principal); M81.0 Age-related osteoporosis without current pathological fracture; I10 Essential (primary) hypertension
CPT/HCPCS: 36415; 80048; 80061; 82306

== ENCOUNTER → 2020-06-29 07:28 | Outpatient (CLI) | payer MEDICARE, SELFPAY ==
[2020-06-29] MEDS: COVID-19 VACC, Ad26(JANSSEN)/PF 0.5 ML IM (07:40)
== END ==
PROVIDERS: PCP Registered Nurse Diabetes Educator; Visit Provider Internal Medicine
DX: Z23 Encounter for immunization (principal)
CPT/HCPCS: 0031A; 91303

== ENCOUNTER → 2021-01-26 07:52 | Outpatient (CLI) | payer OTHER, SELFPAY ==
[2021-01-26 09:28] LABS: BUN Creatinine Ratio 25.7 (6-22); Blood Urea Nitrogen 18 mg/dL (7-17); Carbon Dioxide 35 mmol/L (22-32); Chloride 100 mmol/L (98-107); Cholesterol 232 mg/dL (140-199); Estimated Glomerular Filt Rate > 60.0 mL/min (>60); Glucose 105 mg/dL (80-110); HDL Cholesterol 53 mg/dL (40-60); HEMOLYSIS < 15 (0-50); LDL Cholesterol Calculated 152 mg/dL (<100); Sodium 139 mmol/L (137-145); Triglycerides 135 mg/dL (35-150)
== END ==
PROVIDERS: PCP Registered Nurse Diabetes Educator; Referring Provider Registered Nurse Diabetes Educator; Visit Provider Registered Nurse Diabetes Educator
DX: E78.5 Hyperlipidemia, unspecified (principal); R73.9 Hyperglycemia, unspecified; I10 Essential (primary) hypertension
CPT/HCPCS: 36415; 80048; 80061

== ENCOUNTER 2022-02-11 17:58 | Emergency (ER) | payer OTHER, SELFPAY ==
[2022-02-11] VITALS (17 sets, daily range): BP systolic 112–208; BP diastolic 54–91; PULSE 63–92; RESP 20; TEMP 36.5; O2SAT 94–97; BMI 31.0
--- NOTE | 2022-02-11 20:02 | DI.CT.S_ITS ---
PROCEDURE: CT KIDNEY URETER BLADDER (KUB) INDICATIONS: Flank pain TECHNIQUE: Axial sections were acquired from the lung bases to the pubic symphysis. Coronal and sagittal reformats were performed. For radiation dose reduction, the following was used: automated exposure control, adjustment of mA and/or kV according to patient size. COMPARISON: [facility], CT, CT CHEST WITHOUT CONTRAST, 07/08/2021, 11:58. [facility], CT, CT KUB, 02/10/2022, 18:56. [facility], CT, KIDNEY/ URETER/BLADDER, 05/06/2013, 7:36. FINDINGS: Image quality: Excellent. Lung bases: There are small clustered nodules within the inferior right middle lobe and left lingula as well as linear areas of scarring consistent with sequelae of a chronic atypical infection. A right lower lobe subpleural pulmonary nodule measuring up to 0.9 cm is similar to the recent prior study of 02/10/22 but new compared to older exams. The findings are nonspecific but likely represent an infectious process. Heart: Heart is normal in size. URINARY: Right Kidney and Ureter: A 0.4 cm urinary stone is redemonstrated within the bladder in the region of the right ureterovesicular junction. There is moderate right hydroureteronephrosis, increased compared to the recent prior study of 02/10/2022 with increased perinephric and periureteral fat stranding. No additional renal stones identified. Left Kidney and Ureter: No stones or hydronephrosis. No hydroureter. Bladder: There is a Franco catheter within a nondistended urinary bladder. ABDOMEN: Liver: Noncontrast evaluation of the liver redemonstrates a few scattered hypodense foci within the liver which are too small to characterize but likely represent cysts. Or Gallbladder: Within normal limits without calcified gallstones. Biliary ducts: No biliary ductal dilatation. Pancreas: Unremarkable. Spleen: Normal in size. Adrenal Glands: No adrenal nodules. Stomach and Bowel: Stomach, small bowel loops, and colon are normal in caliber and wall thickness. The appendix is normal in appearance. There is colonic diverticulosis without acute diverticulitis. Peritoneum: No abnormal intraperitoneal fluid. No free air. Ventral Wall: No hernia. Abdominal Nodes: No retroperitoneal or mesenteric adenopathy by size criteria. Vessels: Aorta and inferior vena cava are normal in size. PELVIS: Pelvic Organs: Unremarkable. Pelvic Nodes: No enlarged lymph nodes. Miscellaneous: No inguinal hernias identified. Bones: Visualized osseous structures demonstrate no suspicious focal lesions. IMPRESSION: 1. Increased moderate right hydroureteronephrosis with new perinephric and periureteral fat stranding. The findings suggest persistent obstruction secondary to a bladder stone in the region of the right UVJ. Pyelonephritis is less likely but cannot be excluded given increased perinephric stranding. 2. Colonic diverticulosis without acute diverticulitis. 3. Clustered nodules and scarring within the inferior right middle lobe and left lingula likely represent sequelae of a chronic atypical infection. 4. Right lower lobe 0.9 cm nodule is nonspecific but also likely reflects infection. Recommend a short-term follow-up in 3 months to demonstrate resolution. Dictated by: Dashawn Braswell M.D. on 02/11/2022 at 21:10 Approved by: Dashawn Barswell M.D. on 02/11/2022 at 21:18
--- NOTE | 2022-02-11 20:09 | ED_ITS ---
HPI - Abdominal Pain <Fritz Carbajal MD - Last Filed: 02/12/22 18:06> General Chief Complaint: Urogenital-Female Stated Complaint: Unable to urinate/pain [facility] yesterday Time Seen by Provider: 02/11/22 20:02 Source: patient Mode of arrival: Ambulatory History of Present Illness HPI narrative: Patient complains of right flank pain with nausea today. She states hematuria is not new for her she is had that in the past. This pain started last Thursday. Seen by [facility] emergency department last night. Left at 9:00 p.m.. Diagnosed with a 4 mm stone in the bladder. However today she had right flank pain. 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 Has had little urination today. No fever chills. No chest pain. Related Data Previous Rx's Medication Instructions Recorded ketoconazole 2 % topical cream 1 applic topical BID #60 grams 07/04/20 Disabled Parking Permit #1 ea 01/28/21 hydrochlorothiazide 25 mg tablet 25 mg PO DAILY #30 tabs 01/28/21 lisinopril 10 mg tablet 10 mg PO DAILY #30 tabs 01/28/21 ciprofloxacin HCl 500 mg tablet 500 mg PO BID #14 tabs 02/12/22 (Cipro) Allergies Allergy/AdvReac Type Severity Reaction Status Date / Time No Known Drug Allergies Allergy Verified 01/28/21 13:41 Review of Systems <Fritz Carbajal MD - Last Filed: 02/12/22 18:06> Review of Systems Narrative: GENERAL: Denies chills, fatigue, malaise, fever, sweats. HEENT: Denies sinus pain, ear pain, sore throat RESPIRATORY: Denies dyspnea, cough CARDIOVASCULAR: Denies chest pain, palpitations GASTROINTESTINAL: Positive for nausea, vomiting, abdominal pain : Denies dysuria, frequency, positive hematuria MUSCULOSKELETAL: denies muscle or bony pain SKIN: Denies rash, skin lesions NEUROLOGIC: Denies weakness, numbness ROS Unobtainable: All systems reviewed & are unremarkable except as noted in HPI and below Patient History <Fritz Carbajal MD - Last Filed: 02/12/22 18:06> Medical History Acute exacerbation of chronic obstructive pulmonary disease (COPD) (~2019) Chicken pox COPD (chronic obstructive pulmonary disease) Dry eyes (~2019) Dyslipidemia Dyslipidemia Fatigue Fibromyalgia (~2014) Hearing loss History of urinary incontinence (~2018) Hyperglycemia Hypertension Measles Microscopic hematuria Osteoarthritis Osteoporosis (~2013) Screening for skin cancer Vision disorder Surgical History Anesthesia H/O wrist surgery History of section History of removal of cyst History of tonsillectomy Family History Father Lung disease Mother Diabetes mellitus History of heart disease Hypertension Lung disease Social History Smoking Status: Former smoker alcohol intake: never Smoking Status: Former smoker alcohol intake frequency: holidays/special occasions only Substance Use Type: does not use Exam <Fritz Carbajal MD - Last Filed: 02/12/22 18:06> Narrative Exam Narrative: GENERAL: in no distress, not toxic not dyspneic HEAD: Normocephalic. EYES: Pupils equal round No scleral icterus. ENT: Mucous membranes moist. NECK: Trachea midline. CARDIOVASCULAR: Regular rate and rhythm without murmurs RESPIRATORY: Clear to auscultation. Breath sounds equal bilaterally. No wheezes, rales, or rhonchi. GASTROINTESTINAL: Abdomen soft, non-tender, no pain out of proportion to exam nontender, no peritoneal signs, bowel sounds are present EXTREMITIES: No gross deformities. BACK: Mild right CVA tenderness NEURO: AOx4. SKIN: Warm and dry PSYCH: Not anxious, is cooperative Initial Vital Signs Initial Vital Signs: Vital Signs Temperature 97.7 F 02/11/22 18:30 Pulse Rate 80 02/11/22 18:30 Respiratory Rate 20 02/11/22 18:30 Blood Pressure 208/91 H 02/11/22 18:30 Pulse Oximetry 95 02/11/22 18:30 Oxygen Delivery Method 02/11/22 18:30 <Zayda Mclean DO - Last Filed: 02/12/22 16:41> Initial Vital Signs Initial Vital Signs: Vital Signs Temperature 97.7 F 02/11/22 18:30 Pulse Rate 80 02/11/22 18:30 Respiratory Rate 20 02/11/22 18:30 Blood Pressure 208/91 H 02/11/22 18:30 Pulse Oximetry 95 02/11/22 18:30 Oxygen Delivery Method 02/11/22 18:30 Course <Fritz Carbajal MD - Last Filed: 02/12/22 18:06> Course Course Narrative: February 12, 2022 at 7:00 a.m.. Sign out to Dr Mclean, renal ultrasound and repeat CBC is pending. May need to can antibiotics No new issues during course of stay Decision to Admit Date: 02/11/22 Decision to Admit time: 21:27 Orders Ordered: Discontinued Medications Sodium Chloride (Normal Saline 0.9%) 1,000 mls @ 1,000 mls/hr IV BOLUS ONE Stop: 02/11/22 21:01 Last Infusion: 02/11/22 21:48 Dose: 0 mls/hr Documented By: Admin: 02/11/22 20:18 Dose: 1,000 mls/hr Documented By: SURESH Ceftriaxone Sodium 2,000 mg/ (Sodium Chloride) 100 mls @ 200 mls/hr IV NOW ONE Stop: 02/11/22 21:28 Last Infusion: 02/11/22 22:19 Dose: 0 mls/hr Documented By: Admin: 02/11/22 21:43 Dose: 200 mls/hr Documented By: SURESH Sodium Chloride (Normal Saline 0.9%) 1,000 mls @ 125 mls/hr IV CONT KATHY Last Infusion: 02/12/22 09:31 Dose: 0 mls/hr Documented By: Admin: 02/12/22 07:00 Dose: 125 mls/hr Documented By: Infusion: 02/12/22 07:00 Dose: 0 mls/hr Documented By: Admin: 02/11/22 22:44 Dose: 125 mls/hr Documented By: SURESH Ketorolac Tromethamine (Ketorolac 30 Mg/Ml Vial) 15 mg IV NOW ONE Stop: 02/11/22 21:41 Last Admin: 02/11/22 21:47 Dose: 15 mg Documented By: SURESH Losartan Potassium (Losartan 50 Mg Tablet) 50 mg PO NOW ONE Stop: 02/11/22 22:23 Last Admin: 02/11/22 22:43 Dose: 50 mg Documented By: SURESH Metoprolol Succinate (Metoprolol Er 25 Mg Tablet) 25 mg PO NOW ONE Stop: 02/11/22 22:24 Last Admin: 02/11/22 22:44 Dose: 25 mg Documented By: SURESH Morphine Sulfate (Morphine 4 Mg/Ml Inj) 4 mg IV NOW ONE Stop: 02/11/22 20:03 Last Admin: 02/11/22 20:18 Dose: 4 mg Documented By: SURESH Ondansetron HCl (Ondansetron 4 Mg/2 Ml Inj) 4 mg IV NOW ONE Stop: 02/11/22 20:03 Last Admin: 02/11/22 20:18 Dose: 4 mg Documented By: SURESH Tamsulosin HCl (Tamsulosin 0.4 Mg Capsule) 0.4 mg PO NOW ONE Stop: 02/11/22 21:42 Last Admin: 02/11/22 21:46 Dose: 0.4 mg Documented By: SURESH Reevaluation(s) Reevaluation #1: Reviewed results with patient. And my discussion with Dr. Rodney urology. If the prudent to watch overnight for any changes for pain control so repeat blood work in the morning. Time: 21:43 Reevaluation #2: Patient has been resting comfortably. Pain controlled. Not requiring additional pain medication Time: 03:00 Consultations Consultation #1: Spoke with Urology, Dr. Gerson Banks, reviewed CT scan imaging and changes in the CT scan from yesterday as well as white cell count and urinalysis. He states no surgical intervention lithotripsy or stenting indicated at this time. Patient can be observed overnight with Rocephin and pain control and repeat blood work in the morning. Does not necessarily need antibiotics to go home with. The stranding and white cell count could likely due to the obstructing stone. Given the urine unremarkable. Time: 21:39 Vital Signs Vital signs: Vital Signs - 8 hr 02/12/22 00:30 02/12/22 00:31 02/12/22 00:31 Pulse Rate 66 66 Blood Pressure 101/50 L Pulse Oximetry 92 96 02/12/22 01:00 02/12/22 01:30 02/12/22 02:00 Pulse Rate 60 68 65 Blood Pressure Pulse Oximetry 96 95 97 02/12/22 02:30 02/12/22 03:00 02/12/22 03:30 Pulse Rate 61 62 59 L Blood Pressure Pulse Oximetry 95 96 96 02/12/22 04:00 02/12/22 04:00 02/12/22 04:30 Pulse Rate 65 58 L Blood Pressure 120/58 L Pulse Oximetry 98 97 02/12/22 05:00 Pulse Rate 62 Blood Pressure Pulse Oximetry 97 <Zayda Mclean DO - Last Filed: 02/12/22 16:41> Orders Ordered: Discontinued Medications Sodium Chloride (Normal Saline 0.9%) 1,000 mls @ 1,000 mls/hr IV BOLUS ONE Stop: 02/11/22 21:01 Last Infusion: 02/11/22 21:48 Dose: 0 mls/hr Documented By: Admin: 02/11/22 20:18 Dose: 1,000 mls/hr Documented By: SURESH Ceftriaxone Sodium 2,000 mg/ (Sodium Chloride) 100 mls @ 200 mls/hr IV NOW ONE Stop: 02/11/22 21:28 Last Infusion: 02/11/22 22:19 Dose: 0 mls/hr Documented By: Admin: 02/11/22 21:43 Dose: 200 mls/hr Documented By: SURESH Sodium Chloride (Normal Saline 0.9%) 1,000 mls @ 125 mls/hr IV CONT KATHY Last Infusion: 02/12/22 09:31 Dose: 0 mls/hr Documented By: Admin: 02/12/22 07:00 Dose: 125 mls/hr Documented By: Infusion: 02/12/22 07:00 Dose: 0 mls/hr Documented By: Admin: 02/11/22 22:44 Dose: 125 mls/hr Documented By: SURESH Ketorolac Tromethamine (Ketorolac 30 Mg/Ml Vial) 15 mg IV NOW ONE Stop: 02/11/22 21:41 Last Admin: 02/11/22 21:47 Dose: 15 mg Documented By: SURESH Losartan Potassium (Losartan 50 Mg Tablet) 50 mg PO NOW ONE Stop: 02/11/22 22:23 Last Admin: 02/11/22 22:43 Dose: 50 mg Documented By: SURESH Metoprolol Succinate (Metoprolol Er 25 Mg Tablet) 25 mg PO NOW ONE Stop: 02/11/22 22:24 Last Admin: 02/11/22 22:44 Dose: 25 mg Documented By: DKB Morphine Sulfate (Morphine 4 Mg/Ml Inj) 4 mg IV NOW ONE Stop: 02/11/22 20:03 Last Admin: 02/11/22 20:18 Dose: 4 mg Documented By: SURESH Ondansetron HCl (Ondansetron 4 Mg/2 Ml Inj) 4 mg IV NOW ONE Stop: 02/11/22 20:03 Last Admin: 02/11/22 20:18 Dose: 4 mg Documented By: SURESH Tamsulosin HCl (Tamsulosin 0.4 Mg Capsule) 0.4 mg PO NOW ONE Stop: 02/11/22 21:42 Last Admin: 02/11/22 21:46 Dose: 0.4 mg Documented By: SURESH Vital Signs Vital signs: Vital Signs - 8 hr 02/12/22 00:30 02/12/22 00:31 02/12/22 00:31 Pulse Rate 66 66 Blood Pressure 101/50 L Pulse Oximetry 92 96 02/12/22 01:00 02/12/22 01:30 02/12/22 02:00 Pulse Rate 60 68 65 Blood Pressure Pulse Oximetry 96 95 97 02/12/22 02:30 02/12/22 03:00 02/12/22 03:30 Pulse Rate 61 62 59 L Blood Pressure Pulse Oximetry 95 96 96 02/12/22 04:00 02/12/22 04:00 02/12/22 04:30 Pulse Rate 65 58 L Blood Pressure 120/58 L Pulse Oximetry 98 97 02/12/22 05:00 Pulse Rate 62 Blood Pressure Pulse Oximetry 97 MDM - Abdominal Pain <Fritz Carbajal MD - Last Filed: 02/12/22 18:06> Differential Diagnosis Differential diagnosis: Likely abdominal pain, acute appendicitis and other (Renal stone ureteral stone pyelonephritis) Lab Data Result diagrams: 02/12/22 07:35 02/11/22 20:10 Labs: Lab Results 02/11/22 02/11/22 02/11/22 Range/Units 19:00 20:10 20:10 WBC 13.0 H (4.5-11.0) X10^3/uL RBC 4.89 (4.0-5.2) X10^6/uL Hgb 14.4 (12.0-16.0) g/dL Hct 43.1 (36-46) % MCV 88.2 (80-100) fL MCH 29.5 (26-34) PG MCHC 33.4 (30-36) % RDW 13.3 (11.6-14.8) % Plt Count 241 (150-400) X10^3/uL Neut % (Auto) 78.0 H (50-75) % Lymph % (Auto) 13.4 L (25-40) % [place] % (Auto) 8.0 (3-14) % Eos % (Auto) 0.2 L (2-4) % Baso % (Auto) 0.4 (0-2) % Neut # (Auto) 15322 H (0904-4724) /uL Lymph # (Auto) 1700 (8394-0508) /uL [place] # (Auto) 1000 H (0-900) /uL Eos # (Auto) 0 (0-450) /uL Baso # (Auto) 100 (0-100) /uL Sodium 134 L (137-145) mmol/L Potassium 4.1 (3.4-5.1) mmol/L Chloride 99 (98-107) mmol/L Carbon Dioxide 28 (22-32) mmol/L BUN 16 (7-17) mg/dL Creatinine 0.83 (0.52-1.04) mg/dL Estimated GFR > 60 (>60) mL/min BUN/Creatinine Ratio 19.3 (6-22) Glucose 107 (80-110) mg/dL Lactate (0.7-2.1) mmol/L Calcium 8.8 (8.4-10.2) mg/dL Total Bilirubin 0.7 (0.2-1.3) mg/dL AST 23 (14-36) IU/L ALT 23 (<35) IU/L Alkaline Phosphatase 86 (38-126) U/L Total Protein 7.2 (6.3-8.2) g/dL Albumin 4.1 (3.5-5.0) g/dL Globulin 3.1 (1.7-4.1) g/dL Albumin/Globulin Ratio 1.3 (1.0-2.8) Procalcitonin (<0.5) ng/mL Urine Color Yellow Urine Appearance Clear Urine pH 5.0 (4.5-8.0) Ur Specific [place] 1.025 (1.000-1.035) Urine Protein Trace H (Negative) Urine Glucose (UA) Negative (Negative) g/dL Urine Ketones Trace H (NEGATIVE) Urine Occult Blood 3+ H (Negative) Urine Nitrate Negative (Negative) Urine Bilirubin Negative (NEGATIVE) Urine Urobilinogen 0.2 (0.2) E.U./dL Ur Leukocyte Esterase Negative (NEGATIVE) Urine RBC 10-30/hpf H (0-5/HPF) Urine WBC 0-1/hpf (0-5/HPF) Ur Squamous Epith Cells 0-1 /hpf (0-5/HPF) Urine Bacteria Occasional (0-1) (None) Ur Culture Indicated? Cult not indicated SARS-CoV-2 (PCR) (Negative) 02/11/22 02/11/22 02/11/22 Range/Units 20:10 20:20 21:55 WBC (4.5-11.0) X10^3/uL RBC (4.0-5.2) X10^6/uL Hgb (12.0-16.0) g/dL Hct (36-46) % MCV (80-100) fL MCH (26-34) PG MCHC (30-36) % RDW (11.6-14.8) % Plt Count (150-400) X10^3/uL Neut % (Auto) (50-75) % Lymph % (Auto) (25-40) % [place] % (Auto) (3-14) % Eos % (Auto) (2-4) % Baso % (Auto) (0-2) % Neut # (Auto) (8077-3727) /uL Lymph # (Auto) (4605-1403) /uL [place] # (Auto) (0-900) /uL Eos # (Auto) (0-450) /uL Baso # (Auto) (0-100) /uL Sodium (137-145) mmol/L Potassium (3.4-5.1) mmol/L Chloride (98-107) mmol/L Carbon Dioxide (22-32) mmol/L BUN (7-17) mg/dL Creatinine (0.52-1.04) mg/dL Estimated GFR (>60) mL/min BUN/Creatinine Ratio (6-22) Glucose (80-110) mg/dL Lactate 1.0 (0.7-2.1) mmol/L Calcium (8.4-10.2) mg/dL Total Bilirubin (0.2-1.3) mg/dL AST (14-36) IU/L ALT (<35) IU/L Alkaline Phosphatase (38-126) U/L Total Protein (6.3-8.2) g/dL Albumin (3.5-5.0) g/dL Globulin (1.7-4.1) g/dL Albumin/Globulin Ratio (1.0-2.8) Procalcitonin 0.05 (<0.5) ng/mL Urine Color Urine Appearance Urine pH (4.5-8.0) Ur Specific [place] (1.000-1.035) Urine Protein (Negative) Urine Glucose (UA) (Negative) g/dL Urine Ketones (NEGATIVE) Urine Occult Blood (Negative) Urine Nitrate (Negative) Urine Bilirubin (NEGATIVE) Urine Urobilinogen (0.2) E.U./dL Ur Leukocyte Esterase (NEGATIVE) Urine RBC (0-5/HPF) Urine WBC (0-5/HPF) Ur Squamous Epith Cells (0-5/HPF) Urine Bacteria (None) Ur Culture Indicated? SARS-CoV-2 (PCR) Negative (Negative) 02/12/22 Range/Units 07:35 WBC 6.2 D (4.5-11.0) X10^3/uL RBC 4.37 (4.0-5.2) X10^6/uL Hgb 13.1 (12.0-16.0) g/dL Hct 38.7 (36-46) % MCV 88.7 (80-100) fL MCH 30.0 (26-34) PG MCHC 33.8 (30-36) % RDW 13.5 (11.6-14.8) % Plt Count 212 (150-400) X10^3/uL Neut % (Auto) 55.3 D (50-75) % Lymph % (Auto) 31.6 (25-40) % [place] % (Auto) 11.0 (3-14) % Eos % (Auto) 1.6 L (2-4) % Baso % (Auto) 0.5 (0-2) % Neut # (Auto) 3400 (6981-3184) /uL Lymph # (Auto) 1900 (3966-0764) /uL [place] # (Auto) 700 (0-900) /uL Eos # (Auto) 100 (0-450) /uL Baso # (Auto) 0 (0-100) /uL Sodium (137-145) mmol/L Potassium (3.4-5.1) mmol/L Chloride (98-107) mmol/L Carbon Dioxide (22-32) mmol/L BUN (7-17) mg/dL Creatinine (0.52-1.04) mg/dL Estimated GFR (>60) mL/min BUN/Creatinine Ratio (6-22) Glucose (80-110) mg/dL Lactate (0.7-2.1) mmol/L Calcium (8.4-10.2) mg/dL Total Bilirubin (0.2-1.3) mg/dL AST (14-36) IU/L ALT (<35) IU/L Alkaline Phosphatase (38-126) U/L Total Protein (6.3-8.2) g/dL Albumin (3.5-5.0) g/dL Globulin (1.7-4.1) g/dL Albumin/Globulin Ratio (1.0-2.8) Procalcitonin (<0.5) ng/mL Urine Color Urine Appearance Urine pH (4.5-8.0) Ur Specific [place] (1.000-1.035) Urine Protein (Negative) Urine Glucose (UA) (Negative) g/dL Urine Ketones (NEGATIVE) Urine Occult Blood (Negative) Urine Nitrate (Negative) Urine Bilirubin (NEGATIVE) Urine Urobilinogen (0.2) E.U./dL Ur Leukocyte Esterase (NEGATIVE) Urine RBC (0-5/HPF) Urine WBC (0-5/HPF) Ur Squamous Epith Cells (0-5/HPF) Urine Bacteria (None) Ur Culture Indicated? SARS-CoV-2 (PCR) (Negative) Imaging Data CT scan - abdomen/pelvis: Radiologist's Impression: [address] [address] [address] Scan Report Signed Patient: Sapphire Castaneda MR#: [id number] : 1945 Acct:[id number] Age/Sex: 76 / F Date of Service: 02/11/22 Loc: ED Accession Number: [id number] ?? Procedure: CT kidney ureter bladder (KUB) Ordering Provider: Fritz Carbajal MD PROCEDURE:? CT KIDNEY URETER BLADDER (KUB) ? INDICATIONS:? Flank pain ? TECHNIQUE:? Axial sections were acquired from the lung bases to the pubic symphysis.? Coronal and sagittal reformats were performed.? For radiation dose reduction, the following was used: ?automated exposure control, adjustment of mA and/or kV according to patient size.? ? COMPARISON:? [facility], CT, CT CHEST WITHOUT CONTRAST, 07/08/2021, 11:58.? [facility], CT, CT KUB, 02/10/2022, 18:56.? [facility], CT, KIDNEY/ URETER/BLADDER, 05/06/2013, 7:36. ? FINDINGS:? Image quality:? Excellent.? ? Lung bases:? There are small clustered nodules within the inferior right middle lobe and left lingula as well as linear areas of scarring consistent with sequelae of a chronic atypical infection.? A right lower lobe subpleural pulmonary nodule measuring up to 0.9 cm is similar to the recent prior study of 02/10/22 but new compared to older exams.? The findings are nonspecific but likely represent an infectious process. Heart:? Heart is normal in size. ? URINARY: Right Kidney and Ureter: ? A 0.4 cm urinary stone is redemonstrated within the bladder in the region of the right ureterovesicular junction.? There is moderate right hydroureteronephrosis, increased compared to the recent prior study of 02/10/2022 with increased perinephric and periureteral fat stranding.? No additional renal stones identified. ? Left Kidney and Ureter: ? No stones or hydronephrosis.? No hydroureter. ? Bladder:? There is a Franco catheter within a nondistended urinary bladder. ? ABDOMEN: Liver:? Noncontrast evaluation of the liver redemonstrates a few scattered hypodense foci within the liver which are too small to characterize but likely represent cysts.? Or Gallbladder:? Within normal limits without calcified gallstones.? ? Biliary ducts:? No biliary ductal dilatation.? ? Pancreas:? Unremarkable.? ? Spleen:? Normal in size.? ? Adrenal Glands:? No adrenal nodules.? ? ? Stomach and Bowel:? Stomach, small bowel loops, and colon are normal in caliber and wall thickness.? The appendix is normal in appearance.? There is colonic diverticulosis without acute diverticulitis.? Peritoneum:? No abnormal intraperitoneal fluid.? No free air.? ? Ventral Wall: ? No hernia.? Abdominal Nodes:? No retroperitoneal or mesenteric adenopathy by size criteria.? Vessels:? Aorta and inferior vena cava are normal in size.? ? PELVIS: Pelvic Organs:? Unremarkable.? ? Pelvic Nodes: No enlarged lymph nodes.? Miscellaneous: No inguinal hernias identified. ? ? ? Bones:? Visualized osseous structures demonstrate no suspicious focal lesions. IMPRESSION:? ? 1. Increased moderate right hydroureteronephrosis with new perinephric and periureteral fat stranding.? The findings suggest persistent obstruction secondary to a bladder stone in the region of the right UVJ.? Pyelonephritis is less likely but cannot be excluded given increased perinephric stranding. ? 2. Colonic diverticulosis without acute diverticulitis. ? 3. Clustered nodules and scarring within the inferior right middle lobe and left lingula likely represent sequelae of a chronic atypical infection. ? 4. Right lower lobe 0.9 cm nodule is nonspecific but also likely reflects infection.? Recommend a short-term follow-up in 3 months to demonstrate resolution.? ? Dictated by: Dashawn Braswell M.D. on 02/11/2022 at 21:10 ? ? Approved by: Dashawn Braswell M.D. on 02/11/2022 at 21:18 ? MDM Narrative Medical decision making narrative: Appropriate for admission, patient now has leukocytosis with changes and CT scan compared to 24 hours ago. Patient has decreased urine output. Antibiotics have been started. Not toxic or septic. I did review with urology services. <Zayda Mclean, - Last Filed: 02/12/22 16:41> Lab Data Labs: Lab Results 02/11/22 02/11/22 02/11/22 Range/Units 19:00 20:10 20:10 WBC 13.0 H (4.5-11.0) X10^3/uL RBC 4.89 (4.0-5.2) X10^6/uL Hgb 14.4 (12.0-16.0) g/dL Hct 43.1 (36-46) % MCV 88.2 (80-100) fL MCH 29.5 (26-34) PG MCHC 33.4 (30-36) % RDW 13.3 (11.6-14.8) % Plt Count 241 (150-400) X10^3/uL Neut % (Auto) 78.0 H (50-75) % Lymph % (Auto) 13.4 L (25-40) % [place] % (Auto) 8.0 (3-14) % Eos % (Auto) 0.2 L (2-4) % Baso % (Auto) 0.4 (0-2) % Neut # (Auto) 43775 H (7320-7444) /uL Lymph # (Auto) 1700 (0948-7359) /uL [place] # (Auto) 1000 H (0-900) /uL Eos # (Auto) 0 (0-450) /uL Baso # (Auto) 100 (0-100) /uL Sodium 134 L (137-145) mmol/L Potassium 4.1 (3.4-5.1) mmol/L Chloride 99 (98-107) mmol/L Carbon Dioxide 28 (22-32) mmol/L BUN 16 (7-17) mg/dL Creatinine 0.83 (0.52-1.04) mg/dL Estimated GFR > 60 (>60) mL/min BUN/Creatinine Ratio 19.3 (6-22) Glucose 107 (80-110) mg/dL Lactate (0.7-2.1) mmol/L Calcium 8.8 (8.4-10.2) mg/dL Total Bilirubin 0.7 (0.2-1.3) mg/dL AST 23 (14-36) IU/L ALT 23 (<35) IU/L Alkaline Phosphatase 86 (38-126) U/L Total Protein 7.2 (6.3-8.2) g/dL Albumin 4.1 (3.5-5.0) g/dL Globulin 3.1 (1.7-4.1) g/dL Albumin/Globulin Ratio 1.3 (1.0-2.8) Procalcitonin (<0.5) ng/mL Urine Color Yellow Urine Appearance Clear Urine pH 5.0 (4.5-8.0) Ur Specific [place] 1.025 (1.000-1.035) Urine Protein Trace H (Negative) Urine Glucose (UA) Negative (Negative) g/dL Urine Ketones Trace H (NEGATIVE) Urine Occult Blood 3+ H (Negative) Urine Nitrate Negative (Negative) Urine Bilirubin Negative (NEGATIVE) Urine Urobilinogen 0.2 (0.2) E.U./dL Ur Leukocyte Esterase Negative (NEGATIVE) Urine RBC 10-30/hpf H (0-5/HPF) Urine WBC 0-1/hpf (0-5/HPF) Ur Squamous Epith Cells 0-1 /hpf (0-5/HPF) Urine Bacteria Occasional (0-1) (None) Ur Culture Indicated? Cult not indicated SARS-CoV-2 (PCR) (Negative) 02/11/22 02/11/22 02/11/22 Range/Units 20:10 20:20 21:55 WBC (4.5-11.0) X10^3/uL RBC (4.0-5.2) X10^6/uL Hgb (12.0-16.0) g/dL Hct (36-46) % MCV (80-100) fL MCH (26-34) PG MCHC (30-36) % RDW (11.6-14.8) % Plt Count (150-400) X10^3/uL Neut % (Auto) (50-75) % Lymph % (Auto) (25-40) % [place] % (Auto) (3-14) % Eos % (Auto) (2-4) % Baso % (Auto) (0-2) % Neut # (Auto) (8985-0004) /uL Lymph # (Auto) (4959-0758) /uL [place] # (Auto) (0-900) /uL Eos # (Auto) (0-450) /uL Baso # (Auto) (0-100) /uL Sodium (137-145) mmol/L Potassium (3.4-5.1) mmol/L Chloride (98-107) mmol/L Carbon Dioxide (22-32) mmol/L BUN (7-17) mg/dL Creatinine (0.52-1.04) mg/dL Estimated GFR (>60) mL/min BUN/Creatinine Ratio (6-22) Glucose (80-110) mg/dL Lactate 1.0 (0.7-2.1) mmol/L Calcium (8.4-10.2) mg/dL Total Bilirubin (0.2-1.3) mg/dL AST (14-36) IU/L ALT (<35) IU/L Alkaline Phosphatase (38-126) U/L Total Protein (6.3-8.2) g/dL Albumin (3.5-5.0) g/dL Globulin (1.7-4.1) g/dL Albumin/Globulin Ratio (1.0-2.8) Procalcitonin 0.05 (<0.5) ng/mL Urine Color Urine Appearance Urine pH (4.5-8.0) Ur Specific [place] (1.000-1.035) Urine Protein (Negative) Urine Glucose (UA) (Negative) g/dL Urine Ketones (NEGATIVE) Urine Occult Blood (Negative) Urine Nitrate (Negative) Urine Bilirubin (NEGATIVE) Urine Urobilinogen (0.2) E.U./dL Ur Leukocyte Esterase (NEGATIVE) Urine RBC (0-5/HPF) Urine WBC (0-5/HPF) Ur Squamous Epith Cells (0-5/HPF) Urine Bacteria (None) Ur Culture Indicated? SARS-CoV-2 (PCR) Negative (Negative) 02/12/22 Range/Units 07:35 WBC 6.2 D (4.5-11.0) X10^3/uL RBC 4.37 (4.0-5.2) X10^6/uL Hgb 13.1 (12.0-16.0) g/dL Hct 38.7 (36-46) % MCV 88.7 (80-100) fL MCH 30.0 (26-34) PG MCHC 33.8 (30-36) % RDW 13.5 (11.6-14.8) % Plt Count 212 (150-400) X10^3/uL Neut % (Auto) 55.3 D (50-75) % Lymph % (Auto) 31.6 (25-40) % [place] % (Auto) 11.0 (3-14) % Eos % (Auto) 1.6 L (2-4) % Baso % (Auto) 0.5 (0-2) % Neut # (Auto) 3400 (1468-2051) /uL Lymph # (Auto) 1900 (7001-6086) /uL [place] # (Auto) 700 (0-900) /uL Eos # (Auto) 100 (0-450) /uL Baso # (Auto) 0 (0-100) /uL Sodium (137-145) mmol/L Potassium (3.4-5.1) mmol/L Chloride (98-107) mmol/L Carbon Dioxide (22-32) mmol/L BUN (7-17) mg/dL Creatinine (0.52-1.04) mg/dL Estimated GFR (>60) mL/min BUN/Creatinine Ratio (6-22) Glucose (80-110) mg/dL Lactate (0.7-2.1) mmol/L Calcium (8.4-10.2) mg/dL Total Bilirubin (0.2-1.3) mg/dL AST (14-36) IU/L ALT (<35) IU/L Alkaline Phosphatase (38-126) U/L Total Protein (6.3-8.2) g/dL Albumin (3.5-5.0) g/dL Globulin (1.7-4.1) g/dL Albumin/Globulin Ratio (1.0-2.8) Procalcitonin (<0.5) ng/mL Urine Color Urine Appearance Urine pH (4.5-8.0) Ur Specific [place] (1.000-1.035) Urine Protein (Negative) Urine Glucose (UA) (Negative) g/dL Urine Ketones (NEGATIVE) Urine Occult Blood (Negative) Urine Nitrate (Negative) Urine Bilirubin (NEGATIVE) Urine Urobilinogen (0.2) E.U./dL Ur Leukocyte Esterase (NEGATIVE) Urine RBC (0-5/HPF) Urine WBC (0-5/HPF) Ur Squamous Epith Cells (0-5/HPF) Urine Bacteria (None) Ur Culture Indicated? SARS-CoV-2 (PCR) (Negative) Imaging Data US renal: Radiologist's Impression: tient: Sapphire Castaneda MR#: [id number] : 1945 Acct:[id number] Age/Sex: 76 / F Date of Service: 02/12/22 Loc: ED Accession Number: [id number] ?? Procedure: US renal complete Ordering Provider: Fritz Carbajal MD PROCEDURE:? US RENAL COMPLETE ? INDICATIONS:? Flank pain ? TECHNIQUE:? Real-time scanning was performed of the kidneys and bladder, with image documentation.? ? COMPARISON:? None. ? FINDINGS:? ? Kidneys:? Kidneys are normal in size.? Right kidney measures 12.1 cm long; left kidney measures 11.7 cm long.? Right renal cortical thickness is 1.3 cm; left renal cortical thickness is 1.5 cm.? Renal cortical echotexture is normal.? Mild right hydronephrosis without sonographic evidence for nephrolithiasis.? No left sided hydronephrosis or nephrolithiasis.? No suspicious solid mass lesions.? Bladder:? The urinary bladder is not well visualized as it is decompressed by a Rfanco catheter. No gross abnormalities seen.? Bilateral ureteral jets are not noted with color Doppler interrogation.? (Of note, ureteral jets may not be detectable in up to 25% of cases due to insufficient differences in specific gravity between ureteral and bladder urine).? Miscellaneous:? No free pelvic fluid.? ? IMPRESSION:? Mild right hydronephrosis without evidence for urolithiasis or obstructing mass lesion. Urinary bladder not well visualized secondary to being decompressed by Franco catheter. ? ? Dictated by: Joe Mcfarlane M.D. on 02/12/2022 at 7:42 ? ? MDM Narrative Medical decision making narrative: Appropriate for admission, patient now has leukocytosis with changes and CT scan compared to 24 hours ago. Patient has decreased urine output. Antibiotics have been started. Not toxic or septic. I did review with urology services. Patient signed out to me by Dr. carbajal seen evaluated patient myself. Found to have a 4 mm right kidney stone that has now moved into her bladder causing persistent right hydronephrosis. She had difficulty urinating for about 24 hours despite p.o. intake. Franco catheter was placed last night she has had significant output is. Possible pyelonephritis with leukocytosis of 13 which is now resolved to 6. Ultrasound this morning does show mild right hydronephrosis without evidence of urolithiasis or obstructing mass or lesion. Bladder was not visualized. Patient's pain has been basically resolved for number of hours. It is possible that she passed the stone. At this time I see no need for ongoing Franco catheter. His she had no urinary retention she has no sign of renal failure. She has been urinating throughout the night. Franco catheter removed she urinates prior to discharge. Placed on Cipro for possible pyelo. Discharge Plan Departure Patient Disposition: Home Clinical Impression: Hydronephrosis with urinary obstruction due to ureteral calculus Instructions: DI for Kidney Infection Activity Restrictions/Additional Instructions: *You have been diagnosed with bladder stone *What to do: Blood today is overall reassuring. Ultrasound does show some mild dilation of your right ureter. Please continue to drink fluids. Monitor your urine output. *Continue to take medications as directed Cipro 500 mg twice a day for 7 days--> sent to [facility] *Follow up with your primary care provider in 2-3 days or call [phone] *Return to ER if you should have increasing pain and decreased urine output fever chills or any new, worsening or concerning symptoms Prescriptions: New ciprofloxacin HCl [Cipro] 500 mg tablet 500 mg PO BID Qty: 14 0RF No Action ketoconazole 2 % cream 1 applic topical BID Qty: 60 2RF Rx Instructions: for fungal skin infection lisinopril 10 mg tablet 10 mg PO DAILY Qty: 30 2RF hydrochlorothiazide 25 mg tablet 25 mg PO DAILY Qty: 30 2RF (DME) Disabled Parking Permit See Rx Instructions .ROUTE .MEDSUPPLY Qty: 1 0RF Rx Instructions: Valid for 3 months Referrals: Nelia Shields MD [Primary Care Provider] - Visit Report Forms: Patient Portal/API
[2022-02-11] MEDS: SODIUM CHLORIDE 0.9% 1,000 ML 1000 ML IV (20:18)
[2022-02-11] MEDS: ONDANSETRON 4 MG/2 ML INJ IV (20:18)
[2022-02-11] MEDS: MORPHINE 4 MG/ML INJ IV (20:18)
[2022-02-11 20:20] LABS: Appearance Urine UA CLEAR; Bilirubin Urine UA NEGATIVE (NEGATIVE); Color Urine UA YELLOW; Glucose Urine UA NEGATIVE (Negative); Ketones Urine UA TRACE (NEGATIVE); Leukocyte Esterase Urine UA NEGATIVE (NEGATIVE); Nitrite Urine UA NEGATIVE (Negative); Occult Blood Urine UA 3+ (Negative); Protein Urine UA TRACE (Negative); Specific Gravity Urine UA 1.025 (1.000-1.035); Urobilinogen Urine UA 0.2 E.U./dL (0.2)
[2022-02-11 20:20] LABS: Add Manual Diff / Slide Review NO; Basophils Absolute Auto 100 /uL (0-100); Basophils Percent Auto 0.4 % (0-2); Eosinophils Absolute Auto 0 /uL (0-450); Eosinophils Percent Auto 0.2 % (2-4); Hematocrit 43.1 % (36-46); Hemoglobin 14.4 g/dL (12.0-16.0); Lymphocytes Absolute Auto 1700 /uL (1100-4500); Lymphocytes Percent Auto 13.4 % (25-40); Mean Corpuscular HGB Conc 33.4 % (30-36); Mean Corpuscular Hemoglobin 29.5 PG (26-34); Mean Corpuscular Volume 88.2 fL (80-100); Monocytes Absolute Auto 1000 /uL (0-900); Neutrophils Absolute Auto 10100 /uL (1500-7000); Platelet Count 241 X10^3/uL (150-400); Red Blood Cell Count 4.89 X10^6/uL (4.0-5.2); Red Cell Distribution Width 13.3 % (11.6-14.8)
[2022-02-11 20:35] LABS: Alanine Aminotransferase 23 IU/L (<35); Albumin 4.1 g/dL (3.5-5.0); Albumin Globulin Ratio 1.3 (1.0-2.8); Alkaline Phosphatase 86 U/L (38-126); Aspartate Aminotransferase 23 IU/L (14-36); BUN Creatinine Ratio 19.3 (6-22); Bilirubin Total 0.7 mg/dL (0.2-1.3); Blood Urea Nitrogen 16 mg/dL (7-17); Calcium 8.8 mg/dL (8.4-10.2); Carbon Dioxide 28 mmol/L (22-32); Chloride 99 mmol/L (98-107); Estimated Glomerular Filt Rate > 60 mL/min (>60); Globulin 3.1 g/dL (1.7-4.1); Glucose 107 mg/dL (80-110); HEMOLYSIS 16 (0-50); Potassium 4.1 mmol/L (3.4-5.1); Sodium 134 mmol/L (137-145); Total Protein 7.2 g/dL (6.3-8.2)
[2022-02-11 20:37] LABS: Bacteria Urine Occasional (0-1); Culture Indicated Urine Cult Not Indicated; RBC Urine 10-30/HPF (0-5/HPF); Squamous Epithelial Cell Urine 0-1 /HPF (0-5/HPF); WBC Urine 0-1/HPF (0-5/HPF)
[2022-02-11] MEDS: cefTRIAXone 2,000 MG in SODIUM CHLORIDE 0.9% 100 ML 200 MG IV (21:43)
[2022-02-11] MEDS: TAMSULOSIN 0.4 MG CAPSULE PO (21:46)
[2022-02-11] MEDS: KETOROLAC 30 MG/ML VIAL 15 MG IV (21:47)
[2022-02-11 22:16] LABS: COVID19 -Nasal RAPID Negative (Negative)
[2022-02-11] MEDS: LOSARTAN 50 MG TABLET PO (22:43)
[2022-02-11] MEDS: METOPROLOL ER 25 MG TABLET PO (22:44)
[2022-02-11] MEDS: SODIUM CHLORIDE 0.9% 1,000 ML 125 ML IV (22:44)
[2022-02-11 22:47] LABS: Procalcitonin 0.05 ng/mL (<0.5)
[2022-02-12] VITALS (20 sets, daily range): BP systolic 101–122; BP diastolic 50–63; PULSE 58–78; RESP 20; O2SAT 92–99
--- NOTE | 2022-02-12 06:49 | DI.US.S_ITS ---
PROCEDURE: US RENAL COMPLETE INDICATIONS: Flank pain TECHNIQUE: Real-time scanning was performed of the kidneys and bladder, with image documentation. COMPARISON: None. FINDINGS: Kidneys: Kidneys are normal in size. Right kidney measures 12.1 cm long; left kidney measures 11.7 cm long. Right renal cortical thickness is 1.3 cm; left renal cortical thickness is 1.5 cm. Renal cortical echotexture is normal. Mild right hydronephrosis without sonographic evidence for nephrolithiasis. No left sided hydronephrosis or nephrolithiasis. No suspicious solid mass lesions. Bladder: The urinary bladder is not well visualized as it is decompressed by a Franco catheter. No gross abnormalities seen. Bilateral ureteral jets are not noted with color Doppler interrogation. (Of note, ureteral jets may not be detectable in up to 25% of cases due to insufficient differences in specific gravity between ureteral and bladder urine). Miscellaneous: No free pelvic fluid. IMPRESSION: Mild right hydronephrosis without evidence for urolithiasis or obstructing mass lesion. Urinary bladder not well visualized secondary to being decompressed by Franco catheter. Dictated by: Joe Mcfarlane M.D. on 02/12/2022 at 7:42 Approved by: Joe Mcfarlane M.D. on 02/12/2022 at 7:58
[2022-02-12] MEDS: SODIUM CHLORIDE 0.9% 1,000 ML 125 ML IV (07:00)
[2022-02-12 08:02] LABS: Add Manual Diff / Slide Review NO; Basophils Absolute Auto 0 /uL (0-100); Basophils Percent Auto 0.5 % (0-2); Eosinophils Absolute Auto 100 /uL (0-450); Eosinophils Percent Auto 1.6 % (2-4); Hematocrit 38.7 % (36-46); Hemoglobin 13.1 g/dL (12.0-16.0); Lymphocytes Absolute Auto 1900 /uL (1100-4500); Lymphocytes Percent Auto 31.6 % (25-40); Mean Corpuscular HGB Conc 33.8 % (30-36); Mean Corpuscular Volume 88.7 fL (80-100); Monocytes Absolute Auto 700 /uL (0-900); Neutrophils Absolute Auto 3400 /uL (1500-7000); Neutrophils Percent Auto 55.3 % (50-75); Platelet Count 212 X10^3/uL (150-400); Red Blood Cell Count 4.37 X10^6/uL (4.0-5.2); Red Cell Distribution Width 13.5 % (11.6-14.8); White Blood Cell Count 6.2 X10^3/uL (4.5-11.0)
--- NOTE | 2022-02-12 09:34 | PC.NURSE ---
voided after donis removal.
== END 2022-02-12 09:42 | disposition home or self-care (01) ==
PROVIDERS: Emergency Medicine; Emergency Provider Emergency Medicine; PCP Internal Medicine
DX: N13.2 Hydronephrosis with renal and ureteral calculous obstruction (principal); R31.9 Hematuria, unspecified; Z20.822 Contact with and (suspected) exposure to COVID-19
CPT/HCPCS: 36415; 74176; 76770; 80053; 81001; 83605; 84145; 85025; 87635; 96361; 96365; 96375; 99285; C9803; J0696; J1885; J2270; J2405

== ENCOUNTER → 2023-07-07 09:52 | Outpatient (CLI) | payer OTHER, SELFPAY | PROVIDERS: PCP Physician Assistant; Referring Provider Internal Medicine; Visit Provider Internal Medicine | DX: J44.9 Chronic obstructive pulmonary disease, unspecified (principal); F17.210 Nicotine dependence, cigarettes, uncomplicated; J30.9 Allergic rhinitis, unspecified; A31.0 Pulmonary mycobacterial infection | CPT/HCPCS: 94060; 94726; 94729 ==

== ENCOUNTER 2023-10-15 12:30 | Outpatient (RCR) | payer OTHER, SELFPAY | END 2023-10-15 14:30 | LOC: PUL 12:30 | PROVIDERS: PCP Physician Assistant; Referring Provider Internal Medicine; Visit Provider Internal Medicine | DX: R06.02 Shortness of breath (principal); A31.0 Pulmonary mycobacterial infection; J44.9 Chronic obstructive pulmonary disease, unspecified | CPT/HCPCS: 94626 ==

== ENCOUNTER 2024-10-08 15:41 | Emergency (ER) | payer OTHER, SELFPAY ==
[2024-10-08] VITALS (12 sets, daily range): BP systolic 131–182; BP diastolic 63–90; PULSE 66–88; RESP 14–23; TEMP 36.9; O2SAT 91–98; BMI 32.5
--- NOTE | 2024-10-08 15:52 | DI.RAD.S_ITS ---
PROCEDURE: XR CHEST 1V INDICATIONS: Shortness of breath TECHNIQUE: One view of the chest was acquired. COMPARISON: [facility], CR, XR CHEST 2V, 06/05/2020, 11:06. FINDINGS: Surgical changes and devices: None. Lungs and pleura: Lungs are clear. No pleural effusions or pneumothorax. Mediastinum: Mediastinal contours appear normal. Heart size is normal. Bones and chest wall: No suspicious bony lesions. Overlying soft tissues appear unremarkable. IMPRESSION: No acute cardiopulmonary abnormality is seen. Dictated by: Blaire Garcia M.D. on 10/08/2024 at 15:30 Approved by: Blaire Garcia M.D. on 10/08/2024 at 15:31
--- NOTE | 2024-10-08 15:58 | EKG_ITS ---
[place] [address] [address] [place] [id number] Test Date: 2024-10-08 Pat Name: Sapphire Castandea Department: [facility] Room: Gender: Female Card Hanger: : 1945 Requested By: Order Number: [id number] Reading MD: Handy Rivera MD Measurements Intervals Hoffman Rate: 80 P: 72 CA: 178 QRS: -2 QRSD: 90 T: 41 QT: 384 QTc: 442 Interpretive Statements Normal sinus rhythm Nonspecific ST abnormality Electronically Signed On 10-09-2024 6:41:34 PDT by Handy Rivera MD
[2024-10-08 16:07] LABS: Add Manual Diff / Slide Review NO; Basophils Absolute Auto 0 /uL (0-100); Basophils Percent Auto 0.6 % (0-2); Eosinophils Absolute Auto 100 /uL (0-450); Eosinophils Percent Auto 1.7 % (2-4); Hematocrit 47.2 % (36-46); Hemoglobin 15.4 g/dL (12.0-16.0); Lymphocytes Absolute Auto 2600 /uL (1100-4500); Lymphocytes Percent Auto 32.4 % (25-40); Mean Corpuscular HGB Conc 32.7 % (30-36); Mean Corpuscular Hemoglobin 29.6 PG (26-34); Mean Corpuscular Volume 90.4 fL (80-100); Monocytes Absolute Auto 900 /uL (0-900); Monocytes Percent Auto 10.7 % (3-14); Neutrophils Absolute Auto 4400 /uL (1500-7000); Neutrophils Percent Auto 54.6 % (50-75); Platelet Count 242 X10^3/uL (150-400); Red Blood Cell Count 5.22 X10^6/uL (4.0-5.2)
--- NOTE | 2024-10-08 16:12 | ED.ABDPAIN ---
HPI - Abdominal Pain <Handy Flowers, DO - Last Filed: 10/09/24 07:04> General Chief Complaint: Shortness of Breath/Dyspnea Stated Complaint: rt back pain, swelling feet, chest pain,dizzy Time Seen by Provider: 10/08/24 15:53 Source: patient Mode of arrival: Ambulatory History of Present Illness HPI narrative: 79-year-old female history of arthritis fibromyalgia former smoker COPD dyslipidemia hypertension mac presents with right flank pain radiating to right groin all week long but for the past 2 days has gotten more worse along with shortness of breath. She denies any active chest pain but states that she has chronic leg pain and swelling worse usually on the right side. Patient also reports always having blood in her urine which is her baseline but does not notice any increased urination or burning when she urinates. Patient denies nausea, vomiting, diarrhea, cough, runny nose, sore throat, or sick contacts or any history of kidney stones. Other than what is stated 14 point review of system is negative. Related Data Home Medications ?Medication ?Instructions ?Recorded ?Confirmed albuterol sulfate 90 mcg/actuation 2 puff inhalation Q4H 06/29/23 07/14/23 aerosol inhaler losartan 50 mg tablet 50 mg PO DAILY 06/29/23 07/14/23 meloxicam 15 mg tablet 15 mg PO DAILY 06/29/23 07/14/23 metoprolol succinate 25 mg 25 mg PO DAILY 06/29/23 07/14/23 tablet,extended release 24 hr tiotropium 2.5 mcg-olodaterol 2.5 2 puff inhalation DAILY 06/29/23 07/14/23 mcg/actuation mist for inhalation (Stiolto Respimat) Previous Rx's ?Medication ?Instructions ?Recorded Disabled Parking Permit #1 ea 06/29/23 montelukast 10 mg tablet 10 mg PO BEDTIME #30 tabs 06/29/23 (Singulair) cyclobenzaprine 10 mg tablet 10 mg PO BEDTIME PRN muscle spasm 10/08/24 1 week #7 tabs Allergies Allergy/AdvReac Type Severity Reaction Status Date / Time No Known Drug Allergies Allergy Verified 10/08/24 15:46 Review of Systems <Handy Flowers, - Last Filed: 10/09/24 07:04> Review of Systems ROS Unobtainable: All systems reviewed & are unremarkable except as noted in HPI and below Patient History <Handy Flowers, DO - Last Filed: 10/09/24 07:04> Medical History Acute exacerbation of chronic obstructive pulmonary disease (COPD) (~2018) Chicken pox COPD (chronic obstructive pulmonary disease) Dry eyes (~2018) Dyslipidemia Dyslipidemia Fatigue Fibromyalgia (~2014) Hearing loss History of urinary incontinence (~2018) Hyperglycemia Hypertension Measles Microscopic hematuria Osteoarthritis Osteoporosis (~2013) Screening for skin cancer Vision disorder Surgical History Anesthesia H/O wrist surgery History of section History of removal of cyst History of tonsillectomy Family History Father Lung disease Mother Diabetes mellitus History of heart disease Hypertension Lung disease Social History Smoking Status: Former smoker alcohol intake: never Smoking Status: Former smoker alcohol intake frequency: holidays/special occasions only Exam <Handy Flowers, DO - Last Filed: 10/09/24 07:04> Narrative Exam Narrative: GENERAL: [79] year old patient appears stated age. Well-developed patient, in mild distress. HEAD: Atraumatic. Normocephalic. EYES: Pupils equal round and reactive. Extraocular motions intact. No scleral icterus. No injection or drainage. ENT: Nose without bleeding, purulent drainage. Throat without erythema, tonsillar hypertrophy or exudate. Airway patent. NECK: Trachea midline. Non tender CARDIOVASCULAR: Regular rate and rhythm without murmurs, gallops, or rubs. RESPIRATORY: Clear to auscultation. Breath sounds equal bilaterally. No wheezes, rales, or rhonchi. GASTROINTESTINAL: Abdomen soft, non-tender, nondistended. EXTREMITIES: No edema or joint tenderness. BACK: Nontender without deformity or crepitance. No flank tenderness. NEURO: AOx3. SKIN: No rash or erythema of visible areas Initial Vital Signs Initial Vital Signs: Vital Signs Temperature 98.4 F 10/08/24 15:46 Pulse Rate 88 10/08/24 15:46 Respiratory Rate 18 10/08/24 15:46 Blood Pressure 182/86 H 10/08/24 15:46 Pulse Oximetry 96 10/08/24 15:46 Oxygen Delivery Method Room Air 10/08/24 15:46 <Pedro Begum, - Last Filed: 10/08/24 19:07> Initial Vital Signs Initial Vital Signs: Vital Signs Temperature 98.4 F 10/08/24 15:46 Pulse Rate 88 10/08/24 15:46 Respiratory Rate 18 10/08/24 15:46 Blood Pressure 182/86 H 10/08/24 15:46 Pulse Oximetry 96 10/08/24 15:46 Oxygen Delivery Method Room Air 10/08/24 15:46 Course <Handy Flowers, DO - Last Filed: 10/09/24 07:04> Orders Ordered: Discontinued Medications Albuterol (Albuterol 2.5 Mg/3 Ml Neb (Adult)) 2.5 mg INH NOW ONE Stop: 10/08/24 17:52 Last Admin: 10/08/24 17:55 Dose: 2.5 mg Documented By: SAT Oxycodone/Acetaminophen (Oxycodone/Apap 5/325 Prepack) 1 bottle MISC DIRECTED ONE Stop: 10/08/24 19:06 Last Admin: 10/08/24 19:22 Dose: 1 bottle Documented By: RLC Vital Signs Vital signs: Vital Signs - 8 hr 10/08/24 15:46 10/08/24 16:02 10/08/24 16:30 Temperature 98.4 F Pulse Rate 88 80 76 Respiratory Rate 18 23 16 Blood Pressure 182/86 H Pulse Oximetry 96 96 Oxygen Delivery Method Room Air 10/08/24 17:00 10/08/24 17:19 10/08/24 17:19 Temperature Pulse Rate 68 72 Respiratory Rate 14 21 Blood Pressure 162/90 H Pulse Oximetry 96 95 Oxygen Delivery Method 10/08/24 17:30 10/08/24 17:31 10/08/24 17:31 Temperature Pulse Rate 68 66 Respiratory Rate 16 22 Blood Pressure 144/63 H Pulse Oximetry 96 97 Oxygen Delivery Method 10/08/24 18:00 Temperature Pulse Rate 77 Respiratory Rate 20 Blood Pressure Pulse Oximetry 98 Oxygen Delivery Method Room Air <DO Bertha Smallwood Last Filed: 10/08/24 19:07> Orders Ordered: Discontinued Medications Albuterol (Albuterol 2.5 Mg/3 Ml Neb (Adult)) 2.5 mg INH NOW ONE Stop: 10/08/24 17:52 Last Admin: 10/08/24 17:55 Dose: 2.5 mg Documented By: MELITA Oxycodone/Acetaminophen (Oxycodone/Apap 5/325 Prepack) 1 bottle MISC DIRECTED ONE Stop: 10/08/24 19:06 Last Admin: 10/08/24 19:22 Dose: 1 bottle Documented By: RLC Vital Signs Vital signs: Vital Signs - 8 hr 10/08/24 15:46 10/08/24 16:02 10/08/24 16:30 Temperature 98.4 F Pulse Rate 88 80 76 Respiratory Rate 18 23 16 Blood Pressure 182/86 H Pulse Oximetry 96 96 Oxygen Delivery Method Room Air 10/08/24 17:00 10/08/24 17:19 10/08/24 17:19 Temperature Pulse Rate 68 72 Respiratory Rate 14 21 Blood Pressure 162/90 H Pulse Oximetry 96 95 Oxygen Delivery Method 10/08/24 17:30 10/08/24 17:31 10/08/24 17:31 Temperature Pulse Rate 68 66 Respiratory Rate 16 22 Blood Pressure 144/63 H Pulse Oximetry 96 97 Oxygen Delivery Method 10/08/24 18:00 Temperature Pulse Rate 77 Respiratory Rate 20 Blood Pressure Pulse Oximetry 98 Oxygen Delivery Method Room Air MDM - Abdominal Pain <Handy Flowers, - Last Filed: 10/09/24 07:04> Lab Data 10/08/24 16:00 10/08/24 16:00 Labs: Lab Results 10/08/24 10/08/24 Range/Units 16:00 17:55 WBC 8.0 (4.5-11.0) X10^3/uL RBC 5.22 H (4.0-5.2) X10^6/uL Hgb 15.4 (12.0-16.0) g/dL Hct 47.2 H (36-46) % MCV 90.4 (80-100) fL MCH 29.6 (26-34) PG MCHC 32.7 (30-36) % RDW 14.0 (11.6-14.8) % Plt Count 242 (150-400) X10^3/uL Neut % (Auto) 54.6 (50-75) % Lymph % (Auto) 32.4 (25-40) % [place] % (Auto) 10.7 (3-14) % Eos % (Auto) 1.7 L (2-4) % Baso % (Auto) 0.6 (0-2) % Neut # (Auto) 4400 (9312-8974) /uL Lymph # (Auto) 2600 (2656-9931) /uL [place] # (Auto) 900 (0-900) /uL Eos # (Auto) 100 (0-450) /uL Baso # (Auto) 0 (0-100) /uL PT 11.7 (9.4-12.5) SECONDS INR 1.0 (0.9-1.3) Sodium 138 (137-145) mmol/L Potassium 4.0 (3.4-5.1) mmol/L Chloride 104 (98-107) mmol/L Carbon Dioxide 28 (22-32) mmol/L BUN 14 (7-17) mg/dL Creatinine 0.63 (0.52-1.04) mg/dL Estimated GFR > 60 (>60) mL/min BUN/Creatinine Ratio 22.2 H (6-22) Glucose 118 H (70-99) mg/dL Lactate 1.3 (0.7-2.1) mmol/L Calcium 9.1 (8.4-10.2) mg/dL Total Bilirubin 0.7 (0.2-1.3) mg/dL AST 29 (14-36) IU/L ALT 31 (<35) IU/L Alkaline Phosphatase 83 (38-126) U/L Troponin I < 0.012 (0.01-0.034) ng/mL NT-Pro-B Natriuret Pep 65 (<450) pg/mL Total Protein 7.2 (6.3-8.2) g/dL Albumin 4.4 (3.5-5.0) g/dL Globulin 2.8 (1.7-4.1) g/dL Albumin/Globulin Ratio 1.6 (1.0-2.8) Lipase 98 (23-300) U/L Urine RBC None seen (0-5/HPF) Urine WBC 0-1/hpf (0-5/HPF) Ur Squamous Epith Cells 1-5 /hpf (0-5/HPF) Urine Bacteria Occasional (0-1) (None) Ur Culture Indicated? Cult not indicated Vol Urine Centrifuged 10ml (spun) Imaging Data CT scan - abdomen/pelvis: Radiologist's Impression: [address] [address] [address] Scan Report Signed Patient: Sapphire Castaneda MR#: [id number] : 1945 Acct:[id number] Age/Sex: 79 / F Date of Service: 10/08/24 Loc: ED Accession Number: [id number] Procedure: CT abdomen pelvis w con Ordering Provider: Handy Flowers D.O. PROCEDURE: CT ABDOMEN PELVIS W CON INDICATIONS: R flank RLQ pain TECHNIQUE: After the administration of intravenous contrast, axial sections acquired from the lung bases to the pubic symphysis. Coronal and sagittal reformats were performed. For radiation dose reduction, the following was used: automated exposure control, adjustment of mA and/or kV according to patient size. COMPARISON: None. FINDINGS: Image quality: Diagnostic. Lower Chest: No significant findings. ABDOMEN: Liver: No solid mass. Numerous subcentimeter cystic lesions are too small to adequately characterize but statistically represent simple cysts. Gallbladder: No radiopaque gallstones or wall thickening. Biliary ducts: No biliary dilation. Pancreas: No ductal dilation. Spleen: Size is within normal limits. Adrenal Glands: No adrenal nodules. Kidneys and Ureters: No hydronephrosis. No solid mass. No complex renal cystic lesion which requires follow up. Punctate non-obstructing stones are present within the right renal collecting system. Stomach and Bowel: Normal colonic caliber, without significant wall thickening. Numerous sigmoid diverticula are shown without associated inflammation. Peritoneum: No abnormal intraperitoneal fluid. No free air. Ventral Wall: No significant ventral hernia. Abdominal Nodes: No retroperitoneal or mesenteric adenopathy by size criteria. Vessels: Aorta and inferior vena cava are normal in size. PELVIS: Pelvic Organs: Unremarkable. Bladder: No bladder wall thickening, accounting for underdistention. Pelvic Nodes: No enlarged lymph nodes. Miscellaneous: No inguinal hernias are seen. Bones: No aggressive osseous abnormality. IMPRESSION: No acute abdominal process. Specifically, no obstructive uropathy, diverticulitis, or bowel obstruction. ECG Data Interpretation: NSR HR 80 VA 178 QRS [address]-t wave change No previous EKG to compare against [facility] Narrative Medical decision making narrative: All lab work, vital signs, nurse triage note, medication list, previous ER visits, and all imaging studies reviewed. CT scan showed no acute abdominal process specifically no obstructive uropathy diverticulitis or bowel obstruction. Chest x-ray showed no acute process. Normal CBC BUN 22 creatinine 0.6 glucose 118 lactic acid 1.3 troponin less than 0.012 <Pedro Begum, DO - Last Filed: 10/08/24 19:07> Lab Data Labs: Lab Results 10/08/24 10/08/24 Range/Units 16:00 17:55 WBC 8.0 (4.5-11.0) X10^3/uL RBC 5.22 H (4.0-5.2) X10^6/uL Hgb 15.4 (12.0-16.0) g/dL Hct 47.2 H (36-46) % MCV 90.4 (80-100) fL MCH 29.6 (26-34) PG MCHC 32.7 (30-36) % RDW 14.0 (11.6-14.8) % Plt Count 242 (150-400) X10^3/uL Neut % (Auto) 54.6 (50-75) % Lymph % (Auto) 32.4 (25-40) % Ch[place]ot % (Auto) 10.7 (3-14) % Eos % (Auto) 1.7 L (2-4) % Baso % (Auto) 0.6 (0-2) % Neut # (Auto) 4400 (6411-5863) /uL Lymph # (Auto) 2600 (7827-7553) /uL [place] # (Auto) 900 (0-900) /uL Eos # (Auto) 100 (0-450) /uL Baso # (Auto) 0 (0-100) /uL PT 11.7 (9.4-12.5) SECONDS INR 1.0 (0.9-1.3) Sodium 138 (137-145) mmol/L Potassium 4.0 (3.4-5.1) mmol/L Chloride 104 (98-107) mmol/L Carbon Dioxide 28 (22-32) mmol/L BUN 14 (7-17) mg/dL Creatinine 0.63 (0.52-1.04) mg/dL Estimated GFR > 60 (>60) mL/min BUN/Creatinine Ratio 22.2 H (6-22) Glucose 118 H (70-99) mg/dL Lactate 1.3 (0.7-2.1) mmol/L Calcium 9.1 (8.4-10.2) mg/dL Total Bilirubin 0.7 (0.2-1.3) mg/dL AST 29 (14-36) IU/L ALT 31 (<35) IU/L Alkaline Phosphatase 83 (38-126) U/L Troponin I < 0.012 (0.01-0.034) ng/mL NT-Pro-B Natriuret Pep 65 (<450) pg/mL Total Protein 7.2 (6.3-8.2) g/dL Albumin 4.4 (3.5-5.0) g/dL Globulin 2.8 (1.7-4.1) g/dL Albumin/Globulin Ratio 1.6 (1.0-2.8) Lipase 98 (23-300) U/L Urine RBC None seen (0-5/HPF) Urine WBC 0-1/hpf (0-5/HPF) Ur Squamous Epith Cells 1-5 /hpf (0-5/HPF) Urine Bacteria Occasional (0-1) (None) Ur Culture Indicated? Cult not indicated Vol Urine Centrifuged 10ml (spun) MDM Narrative Medical decision making narrative: All lab work, vital signs, nurse triage note, medication list, previous ER visits, and all imaging studies reviewed. CT scan showed no acute abdominal process specifically no obstructive uropathy diverticulitis or bowel obstruction. Chest x-ray showed no acute process. Normal CBC BUN 22 creatinine 0.6 glucose 118 lactic acid 1.3 troponin less than 0.012 1815: Patient was signed out to me by Dr. Flowers, patient with a history of fibromyalgia, COPD not requiring supplemental oxygen at baseline, hyperlipidemia, hypertension, presented for right-sided flank pain that radiated to the groin, workup has been on remarkable, final disposition is pending urinalysis. 1905: Patient was re-evaluated informed of negative workup, urinalysis not consistent acute urinary tract infection symptomology of uncertain origin however most likely musculoskeletal in nature therefore we will provide patient with symptomatic relief instructed follow up with primary care, she verbalized understanding of this and agrees to being discharged home with outpatient follow up Discharge Plan Departure Patient Disposition: Home Clinical Impression: Acute right flank pain Activity Restrictions/Additional Instructions: Please follow up with the primary care doctor Please read the discharge instructions sheet carefully and bring all papers to all doctor follow-up visits, as it may contain information that your doctor may want to see. Disease processes change and evolve, if your symptoms worsen or if you develop any new symptoms that are concerning to you please return for evaluation. Your evaluation today does not show any evidence of any life-threatening/serious illnesses requiring admission to the hospital or surgery. Please follow-up with your doctor for re-evaluation in approximately 1 day. Seek immediate medical attention for any worrisome symptoms. *If you do not have a primary care provider please contact the [facility] Resource line at [phone]. They will ask some questions about your medical history and help get you set up with a doctor in the community. Prescriptions: New cyclobenzaprine 10 mg tablet 10 mg PO BEDTIME PRN (Reason: muscle spasm) 7 Days Qty: 7 0RF No Action losartan 50 mg tablet 50 mg PO DAILY meloxicam 15 mg tablet 15 mg PO DAILY metoprolol succinate 25 mg tablet extended release 24 hr 25 mg PO DAILY albuterol sulfate 90 mcg/actuation HFA aerosol inhaler 2 puff inhalation Q4H Patient Comments: INHALE 2 PUFFS BY MOUTH EVERY 4 HOURS NEEDED FOR WHEEZING OR SHORTNESS OF BREATH Stiolto Respimat 2.5-2.5 mcg/actuation mist 2 puff inhalation DAILY (DME) Disabled Parking Permit See Rx Instructions .Route .MEDSUPPLY Qty: 1 0RF Rx Instructions: As directed montelukast [Singulair] 10 mg tablet 10 mg PO BEDTIME Qty: 30 2RF Referrals: Pranav Harrison PA-C [Primary Care Provider, Medical] Stand Alone Forms: Patient Portal/API
[2024-10-08 16:14] LABS: Prothrombin Time 11.7 SECONDS (9.4-12.5)
[2024-10-08 16:20] LABS: Alanine Aminotransferase 31 IU/L (<35); Albumin 4.4 g/dL (3.5-5.0); Albumin Globulin Ratio 1.6 (1.0-2.8); Alkaline Phosphatase 83 U/L (38-126); Aspartate Aminotransferase 29 IU/L (14-36); BUN Creatinine Ratio 22.2 (6-22); Bilirubin Total 0.7 mg/dL (0.2-1.3); Blood Urea Nitrogen 14 mg/dL (7-17); Calcium 9.1 mg/dL (8.4-10.2); Carbon Dioxide 28 mmol/L (22-32); Chloride 104 mmol/L (98-107); Estimated Glomerular Filt Rate > 60 mL/min (>60); Globulin 2.8 g/dL (1.7-4.1); Glucose 118 mg/dL (70-99); HEMOLYSIS < 15 (0-50); Lactate (Lactic Acid) 1.3 mmol/L (0.7-2.1); Sodium 138 mmol/L (137-145); Total Protein 7.2 g/dL (6.3-8.2)
[2024-10-08 16:29] LABS: Lipase 98 U/L (23-300)
[2024-10-08 16:32] LABS: NT-proBNP (BNP-Adult 18+) 65 pg/mL (<450); Troponin I < 0.012 ng/mL (0.01-0.034)
[2024-10-08] MEDS: ALBUTEROL 2.5 MG/3 ML NEB (ADULT) INH (17:55)
[2024-10-08 18:13] LABS: Bacteria Urine Occasional (0-1); Culture Indicated Urine Cult Not Indicated; RBC Urine None Seen (0-5/HPF); Squamous Epithelial Cell Urine 1-5 /HPF (0-5/HPF); Urine Volume 10mL (spun); WBC Urine 0-1/HPF (0-5/HPF)
[2024-10-08] MEDS: OXYCODONE/APAP 5/325 PREPACK 1 BOTTLE MISC (19:22)
== END 2024-10-08 19:25 | disposition home or self-care (01) ==
PROVIDERS: Family Medicine; Emergency Provider Student in an Organized Health Care Education/Training Program; PCP Physician Assistant
DX: R10.31 Right lower quadrant pain (principal); R31.9 Hematuria, unspecified; J44.9 Chronic obstructive pulmonary disease, unspecified; I10 Essential (primary) hypertension; Z87.891 Personal history of nicotine dependence
CPT/HCPCS: 36415; 71045; 74177; 80053; 81015; 83605; 83690; 83880; 84484; 85025; 85610; 93005; 93010; 94640; 99284; J7613; Q9967

== ENCOUNTER → 2025-03-30 15:09 | Outpatient (CLI) | payer OTHER, SELFPAY ==
--- NOTE | 2025-03-30 15:09 | DI.US.S_ITS ---
PROCEDURE: US ABD AORTA ANEURYSM SCREEN INDICATIONS: ABDOMINAL PALPITATIONS. HYPERTENSION TECHNIQUE: Real time scanning was performed of the aorta and iliac arteries, with image documentation. COMPARISON: None. FINDINGS: Aorta: Proximal aortic diameter measures 2.5 cm. Mid-aorta measures 1.9 cm. Distal aortic diameter is 1.5 cm. Iliac arteries: Right common iliac artery measures 1.3 cm. Left common iliac artery measures 1.2 cm. Incidental note of hepatic steatosis. IMPRESSION: No evidence of abdominal aortic aneurysm. Minimal ectasia of the proximal abdominal aorta, recommend 5 year follow-up ultrasound. Dictated by: Clarence Pugh M.D. on 03/30/2025 at 16:26 Approved by: Clarence Pugh M.D. on 03/30/2025 at 16:27
== END ==
PROVIDERS: PCP Internal Medicine; Referring Provider Internal Medicine Critical Care Medicine; Visit Provider Internal Medicine Critical Care Medicine
DX: Z13.6 Encounter for screening for cardiovascular disorders (principal); I10 Essential (primary) hypertension; K76.0 Fatty (change of) liver, not elsewhere classified
CPT/HCPCS: 76706